=== PATIENT | male | born 1985 | race Caucasian/White ===

== ENCOUNTER → 2021-03-23 15:32 | Outpatient (CLI) | payer OTHER, SELFPAY ==
--- NOTE | 2021-03-23 15:41 | XR_ITS ---
PROCEDURE: XR SHOULDER LT MIN 2V CLINICAL INDICATION: left shoulder pain COMPARISON: No exams were available for comparison FINDINGS: No fracture or dislocation. No lytic or blastic change. There is normal mineralization. The joint spaces are well-preserved. No significant degenerative/arthritic changes. No erosive changes evident. Other findings:None. IMPRESSION: Negative left shoulder Dictated by: Milan Bah MD 03/23/2021 17:02 Milan Bah MD in [facility] 03/23/2021 17:02
--- NOTE | 2021-03-23 15:41 | XR_ITS ---
PROCEDURE: XR KNEE LT 4V CLINICAL INDICATION: left knee pain COMPARISON: No exams were available for comparison FINDINGS: Status post ACL repair. There are moderate to severe osteoarthritic changes involving all 3 compartments. No acute fracture or dislocation. A cortical screw is present in the proximal tibia anteriorly. IMPRESSION: No acute fracture. Prior ACL repair with moderate to severe osteoarthritic change Dictated by: Milan Bah MD 03/23/2021 17:02 Milan Bah MD in [facility] 03/23/2021 17:02
--- NOTE | 2021-03-23 15:41 | XR_ITS ---
PROCEDURE: XR FOOT LT MIN 3V CLINICAL INDICATION: left foot pain COMPARISON: No exams were available for comparison FINDINGS: No fracture or dislocation. No lytic or blastic change. There is normal mineralization. The joint spaces are well-preserved. No significant degenerative/arthritic changes. No erosive changes evident. Other findings:None. IMPRESSION: No acute findings. Dictated by: Milan Bah MD 03/23/2021 17:00 Milan Bah MD in [facility] 03/23/2021 17:00
[2021-03-23 17:14] LABS: Basophils % 0.5 % (0.1-2.0); Eosinophils # 0.3 K/mm3 (0.0-0.4); Eosinophils % 3.2 % (0.1-12.0); Hematocrit 45.2 % (42.0-52.0); Hemoglobin 15.4 g/dL (14.1-18.0); Lymphocytes # 2.3 K/mm3 (0.7-4.5); Lymphocytes % 25.4 % (10-50); Mean Corpuscular Hemoglobin 32.3 pg (27.0-31.2); Mean Corpuscular Volume 94.8 fl (80-94); Mean Platelet Volume 9.7 fl (7.4-10.4); Monocytes # 0.6 K/mm3 (0.1-1.0); Monocytes % 6.7 % (1.7-9.3); Neutrophils # 5.7 K/mm3 (1.8-7.8); Neutrophils % 64.2 % (37.0-80.0); Platelet Count 278 K/mm3 (142-424); Red Blood Count 4.76 M/mm3 (4.60-6.20); Red Cell Distribution Width 13.6 % (11.5-17.5); White Blood Count 8.9 K/mm3 (4.8-10.8)
[2021-03-23 17:26] LABS: Alanine Aminotransferase 78 U/L (12-78); Albumin Level 4.2 g/dl (3.5-5.0); Albumin/Globulin Ratio 1.6 (1.1-1.8); Alkaline Phosphatase 81 U/L (38-126); Anion Gap 14.4 mEq/L (5-15); Aspartate Amino Transferase 65 U/L (17-59); Bilirubin,Total 0.3 mg/dl (0.2-1.3); Blood Urea Nitrogen 12 mg/dl (9-20); Calcium 9.1 mg/dl (8.4-10.2); Carbon Dioxide 28 mmol/L (22.0-30.0); Chloride 101 mmol/L (98-107); Cholesterol 168 mg/dl (140-200); Estimated Glomerular Filt Rate 111 ml/min (>60); GFR (African American) 134 ML/MIN (>60); Globulin 2.7 g/dL (1.3-3.2); Glucose 84 mg/dl (74-100); HDL Cholesterol 42 mg/dl (40-60); Potassium 4.4 mmoL/L (3.5-5.1); Sodium 139 mmol/L (136-145); Total Protein,Serum 6.9 g/dl (6.3-8.2); Triglycerides 142 mg/dl (30-150); VLDL Cholesterol 28 mg/dL (0-40)
[2021-03-23 17:37] LABS: Direct LDL Cholesterol 96.71 mg/dL (100-129)
[2021-03-23 17:43] LABS: 25-OH Vitamin D, Total 37.7 ng/mL (30-100); Hemoglobin A1C 5.5 % (4.0-6.0)
[2021-03-23 17:56] LABS: Thyroid Stimulating Hormone 1.47 uIU/mL (0.465-4.68)
== END ==
PROVIDERS: Visit Provider Physician Assistant
DX: I10 Essential (primary) hypertension (principal); M25.512 Pain in left shoulder; M25.562 Pain in left knee; M79.672 Pain in left foot; E66.9 Obesity, unspecified; Z68.41 Body mass index [BMI] 40.0-44.9, adult
CPT/HCPCS: 36415; 73030; 73564; 73630; 80053; 80061; 82306; 83036; 84443; 85025

== ENCOUNTER 2021-05-17 07:00 | Outpatient (RCR) | payer MEDICAID, SELFPAY ==
--- NOTE | 2021-04-20 16:33 | HMH.PTOPEV ---
PT Outpatient Evaluation Rehab PT Outpatient Evaluation Start: 04/20/21 15:04 Freq: Status: Active Protocol: Document 04/20/21 15:04 EDGARD (Rec: 04/20/21 16:33 PDESEROUX [id number]) Electronically Signed By Neal Nair, PT 04/20/21 15:04 Outpatient Therapy Subjective History Subjective History Pt. is a 35 year old male who presents to [facility]patient [facility] w/ c/o subacute on chronic and constant LLE knee/ankle/ft. P! , giving out, ROM restrictions, and an antalgic gait of insidious onset 2-3 months ago. Pt. reports traumatic initial symptom onset for the LLE knee in 2004 , but c/o current symptoms worsening 2-3 months ago after insidious initial symptom onset for LLE Plantar Fasciitis. Pt. describes symptoms in the foot as like I'm stepping on glass. Pt. describes symptoms in the knee as a constant ache w/ intermittent stabbing w/ certain movements. Pt. reports symptoms worsen w/ activities that include prolonged standing and ambulating, and placing his heel on the ground . Pt. reports having some symptom relief w/ prescribed anti-inflammatories, heat, and ice. Recent diagnostic imaging positive for severe OA per pt. report. Pt. also reports having some symptom relief after his cortisone injections. 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 Pt. RTMD 07/23/[address] Alcantar's office on 05/03/21. Current medications include Ibuprofen and Tylenol. PMH includes LLE knee ACL and B/L meniscal reconstruction, lower
== END 2021-06-28 08:12 | disposition home or self-care (01) ==
LOC: PT.CARL 07:00
PROVIDERS: Visit Provider Orthopaedic Surgery
DX: M17.12 Unilateral primary osteoarthritis, left knee (principal); M72.2 Plantar fascial fibromatosis
CPT/HCPCS: 97010; 97014; 97110; 97163; G0283

== ENCOUNTER → 2021-06-12 12:17 | Outpatient (CLI) | payer MEDICAID, SELFPAY | PROVIDERS: PCP Physician Assistant; Visit Provider Physician Assistant | DX: G47.33 Obstructive sleep apnea (adult) (pediatric) (principal); R06.83 Snoring | CPT/HCPCS: G0399 ==

== ENCOUNTER → 2021-07-08 10:38 | Outpatient (CLI) | payer MEDICAID, SELFPAY | PROVIDERS: PCP Physician Assistant; Visit Provider Physician Assistant | DX: I49.9 Cardiac arrhythmia, unspecified (principal); I10 Essential (primary) hypertension; Z86.79 Personal history of other diseases of the circulatory system | CPT/HCPCS: 93270 ==

== ENCOUNTER → 2021-07-27 08:33 | Outpatient (CLI) | payer MEDICAID, SELFPAY ==
--- NOTE | 2021-07-27 | CA_ITS ---
APPROVED REPORT Exam: Exercise Treadmill Technologist: Melanie Rocha Ht: 5 ft 10 in Wt: 297 lbs BSA: 2.47 m2 HR: 67 bpm BP: 154/104 mmHg Indications: Shortness of Breath Medical History Medications: Lisinopril/HCTZ,,,,, Diclofenac,,,,, Stress Test Details Test: Dale HR Resting HR: 77 bpm Max Heart Rate (APMHR): 186.015927 bpm Max HR Achieved: 162 bpm Target HR (85% APMHR): 158.185732 bpm % of APMHR: 87.10 Recovery HR: 98 bpm BP Resting BP: 140.0/104.0 mmHg Max BP: 208.0/100.0 mmHg Recovery BP: 153.0/86.0 mmHg ECG Resting ECG: Sinus arrhythmias, incomplete right bundle branch block Clinical Exercise duration: 09:45 min Highest Stage Achieved: Exercise capacity: 10.1 METs Stress ECG Conclusion Patient exercised 9:00 on Dale Protocol. Test stopped due to shortness of air, dizziness. Symptoms: Shortness of air, fatigue, dizziness. Arrhythmias/Ectopy: Rare PAC. One atrial couplet. ST-T Changes: Normal ST response although no tracing obtained of peak exercise due to limb lead falling off. Conclusion: Probably normal GXT. Rest and stress echo images reported separately. Test Summary Stage 3 02:00 14.0 3.4 157 . . . . REST . . . . . . . Standing REST 05:18 0.0 0.0 77 . 140/104 . . Stage 1 01:00 10.0 1.7 114 . . . . Stage 1 02:00 10.0 1.7 120 . . . . Stage 1 03:00 10.0 1.7 122 . 186/102 . . Stage 2 01:00 12.0 2.5 128 . . . . Stage 2 02:00 12.0 2.5 136 . . . . Stage 2 03:00 12.0 2.5 140 . 208/100 . . Stage 3 01:00 14.0 3.4 154 . . . . Stage 3 02:00 14.0 3.4 157 . . . . Stage 3 03:00 14.0 3.4 0 . . . . Stage 4 00:45 16.0 0.0 145 . . . Stop exercise at 09:45 RECOVERY 01:00 0.0 0.0 110 . . . . RECOVERY 02:00 0.0 0.0 100 . . . . RECOVERY 03:00 0.0 0.0 104 . . . . RECOVERY 04:00 0.0 0.0 100 . 163/ 83 . . RECOVERY 05:00 0.0 0.0 92 . 163/ 83 . . RECOVERY 05:21 0.0 0.0 97 . 153/ 86 . . Electronically signed by : Ra Gibbs MD 07/27/2021 19:15:23
--- NOTE | 2021-07-27 08:34 | CA_ITS ---
APPROVED REPORT EXAM: Comprehensive 2D, Doppler, and color-flow Echocardiogram Cot Assembler: Luana Cardozo RVT Ht: 5 ft 10 in Wt: 297lbs BSA: 2.47 BP: 148/92 mmHg Indications: SOA,ARRHYTHMIA ON SLEEP STUDY,HTN,OBESITY,FATIGUE Stress Test Details HR Max Heart Rate (APMHR): 186.808414 bpm Target HR (85% APMHR): 158.949769 bpm BP ECG Conclusion 1. Patient exercised on Dale protocol achieved 10.1 METs of workload on treadmill, the blood pressure response to exercise was hypertensive, there was no exercise-induced chest discomfort, EKG was negative for ischemia. 2. Normal left ventricular systolic function at rest, with exercise there is increase in contractility of all the segments of the myocardium with hyperdynamic left ventricular systolic response, no obvious regional wall motion abnormality to suggest underlying ischemic heart disease. 3. Normal exercise stress echo except for hypertensive blood pressure response with exercise. Electronically signed by : Ra Gibbs MD 07/27/2021 19:32:49
--- NOTE | 2021-07-27 08:34 | CA_ITS ---
APPROVED REPORT EXAM: Comprehensive 2D, Doppler, and color-flow Echocardiogram Hebrew Professor: Luana Cardozo RVT Ht: 5 ft 10 in Wt: 297lbs BSA: 2.47 BP: 148/92 mmHg Indications: SOA,ARRYTHMIA ON SLEEP STUDY,HTN,OBESITY,FATIGUE 2D Dimensions LVOT 2.31 cm (M/F) 1.5-2.5 LA Volume 32.70 mL LA Volume Index 13.23 mL/m2 (M/F) 16-34 M-Mode Dimensions RVDd 2.91 cm (0.9-2.6) LA Diam 4.07 cm (1.9-4.0) LVDd 5.63 cm (3.5-5.7) Ao Diam 3.72 cm (2.0-3.7) LVDs 3.58 cm (3.5-5.7) IVSd 0.63 cm (0.6-1.1) PWd 0.89 cm (0.6-1.1) EF (Teich) 65.50% FS 36.40% EDV (Teich) 155.60 mL TAPSE 1.93 (<1.7) ESV (Teich) 53.70 mL LV Diastology E Decel Time 150.00 (160-240 msec) E/A Ratio 1.6 MED E' 13.60 (< 7 cm/sec) E'/MED E' Ratio 6.76 (>14) LAT E' 8.80 (<10 cm/sec) E/LAT E' Ratio 10.44 (>14) Mitral Valve MV E Max Monico. 92.00 (40-130 cm/s) MV A Velocity 58.00 (40-130 cm/s) E/A Ratio 1.58 MV Decel. Time 150.00 (160-240 ms) MV PHT 44.00 ms Pulmonary Valve PV Peak Velocity 70.00 (50-150 cm/s) Tricuspid Valve TR P. Velocity 244.00 cm/s RAP Estimate 10.00 mmHg RVSP 33.80 mmHg Left Ventricle Left atrium is normal size, left ventricle is normal size, there is no concentric left ventricular hypertrophy, visually estimated ejection fraction 50% with no regional wall motion abnormality, diastolic parameters are within normal range. Right Ventricle Right atrium and right ventricle are mildly enlarged with normal contractility. Aortic Valve Aortic valve is grossly normal, there is no aortic stenosis or aortic insufficiency. Mitral Valve Mitral valve is grossly normal, there is trace mitral regurgitation. Tricuspid Valve Tricuspid valve grossly normal, there is trace tricuspid regurgitation, tricuspid regurgitation jet course is inadequate for calculation of the right ventricular systolic pressure. Pulmonic Valve Pulmonic valve is poorly visualized. Great Vessels Aortic root is normal size. Inferior vena cava normal size with normal inspiratory collapse. Pericardium No significant pericardial effusion noted. Conclusion 1. Normal left ventricular size, preserved left ventricular systolic function, visually estimated ejection fraction 55% with no regional wall motion abnormality, diastolic parameters are within normal range. 2. Mildly enlarged right ventricle with normal contractility. 3. Trace mitral and tricuspid regurgitation. 4. No significant pericardial effusion noted. 5. Inferior vena cava normal size with normal inspiratory collapse. Electronically signed by : Ra Gibbs MD 07/27/2021 19:31:37
== END ==
PROVIDERS: PCP Physician Assistant; Visit Provider Physician Assistant
DX: R06.00 Dyspnea, unspecified (principal); I49.9 Cardiac arrhythmia, unspecified; I10 Essential (primary) hypertension; Z86.79 Personal history of other diseases of the circulatory system
CPT/HCPCS: 93017; 93306; 93350

== ENCOUNTER 2021-09-01 09:59 | Outpatient (RCR) | payer MEDICAID, SELFPAY | END 2021-09-01 10:54 | disposition home or self-care (01) | LOC: PT 09:59 | PROVIDERS: Visit Provider Orthopaedic Surgery | DX: M17.12 Unilateral primary osteoarthritis, left knee (principal) | CPT/HCPCS: 97760 ==

== ENCOUNTER → 2022-04-11 07:28 | Outpatient (CLI) | payer MEDICAID, SELFPAY ==
[2022-04-11 20:11] LABS: Basophils # 0.1 K/mm3 (0-0.2); Basophils % 0.8 % (0.1-2.0); Eosinophils # 0.4 K/mm3 (0.0-0.4); Eosinophils % 4.3 % (0.1-12.0); Lymphocytes # 1.6 K/mm3 (0.7-4.5); Lymphocytes % 19.2 % (10-50); Mean Corpuscular Volume 96.8 fl (80-94); Monocytes # 0.6 K/mm3 (0.1-1.0); Monocytes % 6.7 % (1.7-9.3); Neutrophils # 5.7 K/mm3 (1.8-7.8); Neutrophils % 69.1 % (37.0-80.0); Platelet Count 270 K/mm3 (142-424); Red Blood Count 5.16 M/mm3 (4.60-6.20); Red Cell Distribution Width 13.4 % (11.5-17.5); White Blood Count 8.2 K/mm3 (4.8-10.8)
[2022-04-11 20:51] LABS: Alanine Aminotransferase 52 U/L (12-78); Albumin Level 4.3 g/dl (3.5-5.0); Albumin/Globulin Ratio 1.6 (1.1-1.8); Alkaline Phosphatase 110 U/L (38-126); Anion Gap 16.5 mEq/L (5-15); Aspartate Amino Transferase 43 U/L (17-59); Blood Urea Nitrogen 16 mg/dl (9-20); Calcium 8.9 mg/dl (8.4-10.2); Carbon Dioxide 27 mmol/L (22.0-30.0); Chloride 101 mmol/L (98-107); Chol/HDL Ratio 4.1 (1-3.5); Cholesterol 165 mg/dl (140-200); Estimated Glomerular Filt Rate 110 ml/min (>60); GFR (African American) 133 ML/MIN (>60); Globulin 2.7 g/dL (1.3-3.2); Glucose 102 mg/dl (74-100); HDL Cholesterol 40 mg/dl (40-60); Potassium 4.5 mmoL/L (3.5-5.1); Sodium 140 mmol/L (136-145); Triglycerides 132 mg/dl (30-150); VLDL Cholesterol 26 mg/dL (0-40)
[2022-04-11 21:02] LABS: Bilirubin,Total < 0.1 mg/dl (0.2-1.3)
[2022-04-11 21:08] LABS: Direct LDL Cholesterol 99.92 mg/dL (100-129)
[2022-04-11 21:19] LABS: 25-OH Vitamin D, Total 32.3 ng/mL (30-100)
[2022-04-11 21:33] LABS: Thyroid Stimulating Hormone 1.36 uIU/mL (0.465-4.68)
== END ==
PROVIDERS: PCP Physician Assistant; Visit Provider Physician Assistant
DX: I10 Essential (primary) hypertension (principal); R35.0 Frequency of micturition; E66.9 Obesity, unspecified; Z68.41 Body mass index [BMI] 40.0-44.9, adult
CPT/HCPCS: 80053; 80061; 82306; 84443; 85025; 87086

== ENCOUNTER → 2022-04-25 16:26 | Outpatient (CLI) | payer MEDICAID, SELFPAY ==
[2022-04-25 16:44] LABS: Chloride 96 mmol/L (98-107); Potassium 4.6 mmoL/L (3.5-5.1); Sodium 138 mmol/L (136-145)
[2022-04-25 17:37] LABS: Anion Gap 18.6 mEq/L (5-15); Blood Urea Nitrogen 22 mg/dl (9-20); Carbon Dioxide 28 mmol/L (22.0-30.0); Estimated Glomerular Filt Rate 96 ml/min (>60); GFR (African American) 116 ML/MIN (>60)
[2022-04-25 17:38] LABS: Calcium 9.3 mg/dl (8.4-10.2); Glucose 67 mg/dl (74-100)
== END ==
PROVIDERS: PCP Physician Assistant; Visit Provider Physician Assistant
DX: I10 Essential (primary) hypertension (principal)
CPT/HCPCS: 80048

== ENCOUNTER 2022-10-31 12:27 | Emergency (ER) | payer MEDICAID, SELFPAY ==
[2022-10-31 12:27] VITALS: BP 139/87; PULSE 83; RESP 18; TEMP 36.9; O2SAT 99; BMI 43.0
--- NOTE | 2022-10-31 12:37 | HMH.EDGENADL ---
Discharge Plan Disposition Patient Disposition: Home, Self-Care Prescriptions Prescriptions: New cyclobenzaprine 5 mg tablet 5 mg PO TID PRN (Reason: muscle spasm) 5 Days Qty: 15 0RF No Action meloxicam 15 mg tablet See Rx Instructions .ROUTE .COMPLEX Rx Instructions: TAKE ONE TABLET BY MOUTH EVERY DAY lisinopril-hydrochlorothiazide 20-25 mg tablet See Rx Instructions .ROUTE .COMPLEX Rx Instructions: TAKE ONE TABLET BY MOUTH EVERY DAY Referrals Follow up/Referrals: Fadia Ott PA [Primary Care Provider] - See instructions Activity Restrictions/Add. Instructions Additional Instructions/Restrictions: Please take your Flexeril with 1000 mg of acetaminophen 3 times a day. Please have a discussion with your primary care doctor about your chronic NSAID use including meloxicam and ibuprofen. Needs okay to take 800 mg of ibuprofen without meloxicam 3 times a day over the next week. However there is significant side effects and harm from chronic NSAID use including cardiovascular risk factors gastrointestinal risk factors chronic kidney damage, etc. This is a conversation need to have with your primary care doctor and after this acute episode has improved I would suggest that you discontinue those. Please return to the emergency department with any urinary or bowel incontinence numbness between your legs lower extremity paralysis high fevers or other concerns. Clinical Impressions Clinical Impression: Lumbar strain, Contusion of back Discharge ED Provider: Pernell Baltazar General Adult HPI General Chief complaint: Fall Stated complaint: AO@home 10/29 Back pain Time Seen by Provider: 10/31/22 12:37 Mode of Arrival: Ambulatory Source of Information: Patient Limitations: No Limitations Description of Symptoms (Recalled from ER Triage Doc. by RN): 36 M presents from home after falling off the back of his truck on Monday. He slipped and lost balance. Denies loss of bowel or bladder. CMS intact overall. Denies LOC, but did hit his head. Since Monday he has just dealt with it, but is experiencing increased pain and discomfort in his L-spine and T-Spine. History of Present Illness HPI narrative: 36-year-old male presenting with lower back pain following fall off of a truck. This happened several days ago when he was getting down backwards from the bed of his truck and fell backwards onto his left buttock area with an axial load and subsequent lumbar spine pain. States has had some pain radiating down his left lower extremity with some pain associated with movement but no significant weakness or paralysis no saddle anesthesia no urinary or bowel incontinence or retention no fevers or chills history of injection drug use or diabetes. He has been taking ibuprofen as well as meloxicam at home. Meds meloxicam is a chronic medication he is on daily for chronic knee pain. He took ibuprofen on top of this. He has not had any GI bleeding any nausea vomiting changes in mental status any chest pain or decrease in urine output. Related Data Home Medications Medication Instructions Recorded Confirmed lisinopril 20 See Rx Instructions .Route 10/31/22 10/31/22 mg-hydrochlorothiazide 25 mg tablet .COMPLEX High blood pressure meloxicam 15 mg tablet See Rx Instructions .Route 10/31/22 10/31/22 .COMPLEX Pain Previous Rx's Medication Instructions Recorded cyclobenzaprine 5 mg tablet 5 mg PO TID PRN muscle spasm 5 10/31/22 days #15 tabs Allergies Allergy/AdvReac Type Severity Reaction Status Date / Time Penicillins Allergy Mild Verified 08/11/22 13:51 [facility] Disclaimer: The information contained in this section may have been updated after the patient was seen, as this information can be updated by other users. Medical History (Updated 10/31/22 @ 14:07 by Pernell Baltazar MD) Cardiac dysrhythmia Deviated septum Dyspnea History of cardiac arrhythmia Hypertension Left knee
--- NOTE | 2022-10-31 12:49 | CT_ITS ---
FINAL REPORT TECHNIQUE: Axial images were performed through the lumbar spine by computed tomography. Sagittal reconstruction images were also performed. This study was performed with techniques to keep radiation doses as low as reasonably achievable, (ALARA). Individualized dose reduction techniques using automated exposure control or adjustment of mA and/or kV according to the patient''s size were employed. CLINICAL HISTORY: fall, midline L spine pain FINDINGS: Sagittal reconstruction images demonstrate no subluxation. No fracture is identified. There are mild degenerative changes. There is mild spurring of the SI joints. There are areas of neural foraminal narrowing, greatest at L5-S1. IMPRESSION: No acute fracture. Reviewed, Interpreted and Dictated by Chano Gibbs III, MD Transcribed by Edward Waller Authenticated and [facility]
[2022-10-31 14:11] VITALS: BP 139/85; PULSE 87; RESP 18; TEMP 36.8; O2SAT 98
== END 2022-10-31 14:12 | disposition home or self-care (01) ==
PROVIDERS: Emergency Provider Student in an Organized Health Care Education/Training Program; PCP Physician Assistant
DX: S39.012A Strain of muscle, fascia and tendon of lower back, initial encounter (principal); S30.0XXA Contusion of lower back and pelvis, initial encounter; M79.605 Pain in left leg; W17.89XA Other fall from one level to another, initial encounter
CPT/HCPCS: 72131; 99284

== ENCOUNTER → 2022-11-30 13:30 | Outpatient (CLI) | payer MEDICAID, SELFPAY | PROVIDERS: PCP Physician Assistant; Visit Provider Physician Assistant | DX: M54.50 Low back pain, unspecified (principal) | CPT/HCPCS: 87086 ==

== ENCOUNTER 2022-12-21 08:00 | Outpatient (RCR) | payer MEDICAID, SELFPAY ==
--- NOTE | 2022-12-06 11:00 | HMH.PTOPEV ---
PT Outpatient Evaluation Rehab PT Outpatient Evaluation Start: 12/06/22 09:59 Freq: Status: Active Protocol: Document 12/06/22 09:59 PDESERJURGEN (Rec: 12/06/22 10:59 PDESEROUX [id number]) E-signed By Neal Nair, PT Outpatient Therapy Subjective History Subjective History Pt. is a 36 year old male whom presents to [facility] in [place] for the initial evaluation this date( 12/06/22) w/ c/o chronic and constant lumbar(L>R) P! and stiffness w/ c/o intermittment BLE numbness. Pt. vocalizes having numbness radiate into BLEs w/ lying supine. Pt. also vocalizes BLE feels like they fall off w/ standing and ambulation. Pt. reports original onset of symptoms was in 2022 after falling off the back of a truck. Pt. reports symptoms have progressively worsened since then. Pt. reports having some symptom relief for a day and a half w/ recent injection for current complaint. Recent diagnostic imaging(radiograph) negative per pt. report. Pt. denies bowel/bladder dysfunction nor saddle paresthesia at this time. Current medication list includes Gabapentin and Lisinopril. PMH includes S/P LLE knee ACL reconstruction x 4 surgeries, Hypertension, and S/P reconstruction of LUE shldr. rhomboid and lower trap . muscles. Pt. denies history of pacemaker, denies history of latex allergy, denies history of cancer(self), denies history of diabetes, reports medicational allergy to Penicillin. Chief Complaint Pain,Spasms,Stiff,Paresthesia, Weakness Symptom Type Ache,Sharp,Dull,Stabbing, Burning,Nu
--- NOTE | 2022-12-06 11:02 | HMH.PTOPEV ---
PT Outpatient Evaluation Rehab PT Outpatient Evaluation Start: 12/06/22 09:59 Freq: Status: Active Protocol: Document 12/06/22 09:59 PDESERJURGEN (Rec: 12/06/22 10:59 PDESEROUX [id number]) E-signed By Neal Nair, PT Outpatient Therapy Subjective History Subjective History Pt. is a 36 year old male whom presents to [facility] Out[facility] in [place] for the initial evaluation this date( 12/06/22) w/ c/o chronic and constant lumbar(L>R) P! and stiffness w/ c/o intermittment BLE numbness. Pt. vocalizes having numbness radiate into BLEs w/ lying supine. Pt. also vocalizes BLE feels like they fall off w/ standing and ambulation. Pt. reports original onset of symptoms was in 2022 after falling off the back of a truck. Pt. reports symptoms have progressively worsened since then. Pt. reports having some symptom relief for a day and a half w/ recent injection for current complaint. Recent diagnostic imaging(radiograph) negative per pt. report. Pt. denies bowel/bladder dysfunction nor saddle paresthesia at this time. Current medication list includes Gabapentin and Lisinopril. PMH includes S/P LLE knee ACL reconstruction x 4 surgeries, Hypertension, and S/P reconstruction of LUE shldr. rhomboid and lower trap . muscles. Pt. denies history of pacemaker, denies history of latex allergy, denies history of cancer(self), denies history of diabetes, reports medicational allergy to Penicillin. Chief Complaint Pain,Spasms,Stiff,Paresthesia, Weakness Symptom Type Ache,Sharp,Dull,Stabbing, Burning,Nu
== END 2023-01-25 17:05 | disposition home or self-care (01) ==
LOC: PT 08:00
PROVIDERS: PCP Physician Assistant; Visit Provider Physician Assistant
DX: M54.50 Low back pain, unspecified (principal)
CPT/HCPCS: 97010; 97014; 97110; 97140; 97163; G0283

== ENCOUNTER 2023-03-29 12:12 | Emergency (ER) | payer OTHER, MEDICAID, SELFPAY ==
[2023-03-29 12:12] VITALS: BP 116/57; PULSE 65; RESP 18; TEMP 37.1; O2SAT 98; BMI 41.5
--- NOTE | 2023-03-29 12:14 | PC.NURSE ---
calling [facility] for transfer for hand surgeon due to pt cut of right thumb above knuckle
--- NOTE | 2023-03-29 12:15 | PC.NURSE ---
DR. Cespedes at [facility]
--- NOTE | 2023-03-29 12:18 | HMH.EDGENADL ---
Discharge Plan Disposition Patient Disposition: Xfer Short-Term Hosp Condition: Good Prescriptions Prescriptions: No Action clotrimazole [Lotrimin AF (clotrimazole)] 1 % cream 1 applic topical BID Qty: 15 2RF gabapentin [Neurontin] 100 mg capsule 100 mg PO BID Qty: 60 2RF phentermine [Adipex-P] 37.5 mg tablet 37.5 mg PO DAILY Qty: 30 0RF Rx Instructions: must administer 30 minutes before or 1-2 hours after breakfast lisinopril-hydrochlorothiazide 20-25 mg tablet See Rx Instructions .ROUTE .COMPLEX Qty: 30 1RF Dose Instruction: TAKE ONE TABLET BY MOUTH EVERY DAY Rx Instructions: TAKE ONE TABLET BY MOUTH EVERY DAY meloxicam 15 mg tablet See Rx Instructions .ROUTE .COMPLEX Qty: 30 1RF Dose Instruction: TAKE ONE TABLET BY MOUTH EVERY DAY Rx Instructions: TAKE ONE TABLET BY MOUTH EVERY DAY Referrals Follow up/Referrals: Provider,Referral, MD [Primary Care Provider] - See instructions Clinical Impressions Clinical Impression: 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 Qualifiers: Encounter type: initial encounter Qualified Code(s): S68.511A - Complete traumatic transphalangeal amputation of right thumb, initial encounter Instructions Patient Instructions: DI for Laceration Repair Discharge ED Provider: Stacey Cespedes General Adult HPI General Chief complaint: Wound/Laceration Stated complaint: Laceration Time Seen by Provider: 03/29/23 12:13 History of Present Illness HPI narrative: This patient is a 37-year-old male with a history of hypertension and obesity presenting to the emergency department for evaluation with concern for an amputation of his right from through his phalanx. This happened at work just prior to arrival. 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 He is right-hand dominant. He denies any other injuries. He is unsure when his last tetanus shot was. He reports a significant penicillin allergy, and states that he is intolerant of all antibiotics related to penicillins. He was well prior to this and does not take any blood thinners. Related Data Previous Rx's Medication Instructions Recorded clotrimazole 1 % topical cream 1 applic topical BID #15 grams 11/30/22 (Lotrimin AF (clotrimazole)) gabapentin 100 mg capsule 100 mg PO BID #60 caps 11/30/22 (Neurontin) lisinopril 20 See Rx Instructions .Route 12/27/22 mg-hydrochlorothiazide 25 mg tablet .COMPLEX #30 tabs meloxicam 15 mg tablet See Rx Instructions .Route 12/28/22 .COMPLEX #30 tabs phentermine 37.5 mg tablet 37.5 mg PO DAILY #30 tabs 12/29/22 (Adipex-P) Allergies Allergy/AdvReac Type Severity Reaction Status Date / Time Penicillins Allergy Mild Verified 12/29/22 10:28 [facility] Disclaimer: The information contained in this section may have been updated after the patient was seen, as this information can be updated by other users. Medical History Cardiac dysrhythmia Deviated septum Dyspnea History of cardiac arrhythmia Hypertension Left knee pain Obesity Sleep apnea Tympanosclerosis Family History Other Asthma Cancer Diabetes Hypertension Stroke Social History Smoking Status: Never smoker alcohol intake: current substance use type: denies use current occupational status: employed Travel in the last 8 weeks: None ROS Obtained: Yes All systems reviewed & no additional complaints except as documented Physical Exam General General appearance: alert and in no apparent distress Head Head exam: atraumatic and normocephalic Eye Eye exam: Present normal appearance, PERRL and EOMI ENT ENT exam: Present normal exam, normal oropharynx, mucous membranes moist and normal external ear exam Neck Neck exam:
--- NOTE | 2023-03-29 12:21 | PC.NURSE ---
SITE CLEANED, WRAPPED WITH WET GAUZE. PT TOLERATED WELL
[2023-03-29 12:30] VITALS: BP 133/77; PULSE 77; O2SAT 99
--- NOTE | 2023-03-29 12:36 | PC.NURSE ---
Addendum entered by JEFFERSON Tuttle 03/29/23 12:52: good emerita's doctor Original Note: speaking with
--- NOTE | 2023-03-29 12:48 | PC.NURSE ---
[facility] here for patient transport to [facility]
--- NOTE | 2023-03-29 12:56 | PC.NURSE ---
Report given to Shona at [facility].
[2023-03-29 13:02] VITALS: BP 115/78; PULSE 87; RESP 18; TEMP 37.1; O2SAT 99
== END 2023-03-29 13:03 | disposition short-term general hospital (02) ==
PROVIDERS: Emergency Provider Emergency Medicine; PCP Physician Assistant
DX: S68.511A Complete traumatic transphalangeal amputation of right thumb, initial encounter (principal); I10 Essential (primary) hypertension; E66.9 Obesity, unspecified; W31.9XXA Contact with unspecified machinery, initial encounter; Y99.0 Civilian activity done for income or pay; G47.30 Sleep apnea, unspecified; Z23 Encounter for immunization
CPT/HCPCS: 90715; 96365; 96372; 96375; 99285; J2405

== ENCOUNTER 2023-06-05 08:00 | Outpatient (RCR) | payer OTHER, SELFPAY | END 2023-06-19 15:12 | disposition home or self-care (01) | LOC: PT 08:00 | PROVIDERS: PCP Physician Assistant; Visit Provider Physician Assistant | DX: S68.521A Partial traumatic transphalangeal amputation of right thumb, initial encounter (principal) | CPT/HCPCS: 97110; 97112; 97163; 97164; 97530 ==

== ENCOUNTER 2023-09-06 10:25 | Outpatient (RCR) | payer OTHER, SELFPAY | END 2023-09-06 11:25 | disposition home or self-care (01) | LOC: OT 10:25 | PROVIDERS: Visit Provider Physician Assistant | DX: M79.641 Pain in right hand (principal); S68.52 Partial traumatic transphalangeal amputation of thumb | CPT/HCPCS: 97166 ==

== ENCOUNTER 2023-10-12 18:57 | Outpatient (CLI) | payer MEDICAID, SELFPAY ==
[2023-10-12 18:57] LABS: Basophils # 0.1 K/mm3 (0-0.2); Basophils % 0.6 % (0.1-2.0); Eosinophils # 0.2 K/mm3 (0.0-0.4); Eosinophils % 1.7 % (0.1-12.0); Hemoglobin 15.7 g/dL (14.1-18.0); Lymphocytes # 1.7 K/mm3 (0.7-4.5); Lymphocytes % 20.2 % (10-50); Mean Corpuscular HGB Conc 32.7 g/dL (31.8-35.4); Mean Corpuscular Hemoglobin 32.4 pg (27.0-31.2); Mean Corpuscular Volume 99.1 fl (80-94); Mean Platelet Volume 10.1 fl (7.4-10.4); Monocytes # 0.5 K/mm3 (0.1-1.0); Monocytes % 6.1 % (1.7-9.3); Neutrophils # 6.1 K/mm3 (1.8-7.8); Neutrophils % 71.3 % (37.0-80.0); Platelet Count 237 K/mm3 (142-424); Red Blood Count 4.85 M/mm3 (4.60-6.20); Red Cell Distribution Width 13.3 % (11.5-17.5); White Blood Count 8.6 K/mm3 (4.8-10.8)
[2023-10-12 19:37] LABS: Alanine Aminotransferase 63 U/L (12-78); Albumin Level 4.7 g/dl (3.5-5.0); Albumin/Globulin Ratio 1.9 (1.1-1.8); Alkaline Phosphatase 72 U/L (38-126); Anion Gap 15.9 mEq/L (5-15); Aspartate Amino Transferase 49 U/L (17-59); Bilirubin,Total 0.5 mg/dl (0.2-1.3); Blood Urea Nitrogen 12 mg/dl (9-20); Calcium 9.3 mg/dl (8.4-10.2); Carbon Dioxide 27 mmol/L (22.0-30.0); Chloride 100 mmol/L (98-107); Chol/HDL Ratio 4.7 (1-3.5); Cholesterol 169 mg/dl (140-200); Estimated Glomerular Filt Rate 109 ml/min (>60); GFR (African American) 132 ML/MIN (>60); Globulin 2.5 g/dL (1.3-3.2); Glucose 81 mg/dl (74-100); HDL Cholesterol 36 mg/dl (40-60); Potassium 3.9 mmoL/L (3.5-5.1); Sodium 139 mmol/L (136-145); Total Protein,Serum 7.2 g/dl (6.3-8.2); Triglycerides 230 mg/dl (30-150); VLDL Cholesterol 46 mg/dL (0-40)
[2023-10-12 19:49] LABS: Direct LDL Cholesterol 87.98 mg/dL (100-129)
[2023-10-12 19:54] LABS: 25-OH Vitamin D, Total 35.9 ng/mL (30-100)
[2023-10-12 20:09] LABS: Thyroid Stimulating Hormone 0.97 uIU/mL (0.465-4.68)
== END 2023-10-12 23:59 ==
LOC: LAB.DROPOF 18:57
PROVIDERS: PCP Physician Assistant; Visit Provider Physician Assistant
DX: I10 Essential (primary) hypertension (principal); G62.9 Polyneuropathy, unspecified; Z79.899 Other long term (current) drug therapy
CPT/HCPCS: 80053; 80061; 82306; 84443; 85025

== ENCOUNTER 2023-12-14 18:33 | Emergency (ER) | payer OTHER, SELFPAY ==
[2023-12-14 18:36] VITALS: BP 166/110; PULSE 87; RESP 18; TEMP 37; O2SAT 100; BMI 41.1
--- NOTE | 2023-12-14 19:14 | ED_ITS ---
<Statement entered by Pernell Baltazar MD - 12/14/23 22:56> I was consulted by the CHANDNI, and we discussed the complexity of the problems being addressed. I approved the treatment and management plan for this patient's care in the emergency department, thus performing a substantive portion of the medical decision making. Pernell Baltazar MD, JAYLEN, FACEP Discharge Plan Disposition Patient Disposition: Home, Self-Care Condition: Good Prescriptions Prescriptions: New cephalexin 500 mg capsule 500 mg PO BID 10 Days Qty: 20 0RF No Action amitriptyline 25 mg tablet 25 mg PO HS Qty: 30 2RF gabapentin 300 mg capsule 300 mg PO Q8H Qty: 90 2RF clotrimazole [Lotrimin AF (clotrimazole)] 1 % cream 1 applic topical BID Qty: 15 2RF meloxicam 15 mg tablet See Rx Instructions .ROUTE .COMPLEX Qty: 30 1RF Dose Instruction: TAKE ONE TABLET BY MOUTH EVERY DAY Rx Instructions: TAKE ONE TABLET BY MOUTH EVERY DAY lisinopril-hydrochlorothiazide 20-25 mg tablet See Rx Instructions .ROUTE .COMPLEX Qty: 30 1RF Dose Instruction: TAKE ONE TABLET BY MOUTH EVERY DAY Rx Instructions: TAKE ONE TABLET BY MOUTH EVERY DAY Referrals Follow up/Referrals: Fadia Ott PA [Primary Care Provider] - See instructions Activity Restrictions/Add. Instructions Additional Instructions/Restrictions: Take all antibiotics till gone. I have referred you to a local orthopedist for follow-up. Return to ER as needed for any worsening signs or symptoms Clinical Impressions Clinical Impression: Abscess of right thumb Instructions Patient Instructions: DI for Skin Abscess Discharge ED Provider: Pernell Baltazar General Adult HPI General Chief complaint: Skin/Abscess/Foreign Body Stated complaint: WC right thumb injury Time Seen by Provider: 12/14/23 19:07 Mode of Arrival: Ambulatory Source of Information: Patient Limitations: No Limitations Description of Symptoms (Recalled from ER Triage Doc. by RN): PT C/O RIGHT THUMB PAIN AND SWELLING. PAIN STARTED 2-3 DAYS AGO, REDNESS AND SWELLING STARTED THIS AM. NO NEW INJURY. PT HAD CRUSH INJURY WITH AMPUTATION 03/29/23. LAST SX ON 10/17 History of Present Illness HPI narrative: Patient presents for evaluation of pain of his right thumb. Patient is 2 months postoperative from a traumatic avulsion of the distal portion of his thumb that includes the nail and nailbed. He has an area of pointing that is extremely te nder to palpation. Denies fever chills hemoptysis hematochezia melena loss of sensation loss of motor function. Related Data Previous Rx's Medication Instructions Recorded clotrimazole 1 % topical cream 1 applic topical BID #15 grams 11/30/22 (Lotrimin AF (clotrimazole)) meloxicam 15 mg tablet See Rx Instructions .Route 04/27/23 .COMPLEX #30 tabs amitriptyline 25 mg tablet 25 mg PO HS #30 tabs 10/12/23 gabapentin 300 mg capsule 300 mg PO Q8H #90 caps 10/12/23 lisinopril 20 See Rx Instructions .Route 10/30/23 mg-hydrochlorothiazide 25 mg tablet .COMPLEX #30 tabs cephalexin 500 mg capsule 500 mg PO BID 10 days #20 caps 12/14/23 Allergies Allergy/AdvReac Type Severity Reaction Status Date / Time vancomycin Allergy Intermediate Tachycardia Verified 10/12/23 15:11 Penicillins Allergy Mild Verified 10/12/23 15:11 [facility] Disclaimer: The information contained in this section may have been updated after the patient was seen, as this information can be updated by other users. Medical History Tympanosclerosis Deviated septum Sleep apnea Obesity Dyspnea History of cardiac arrhythmia Cardiac dysrhythmia Left knee pain Hypertension Family History Other Asthma Cancer Diabetes Hypertension Stroke Social History Smoking Status: Never smoker alcohol intake: current alcohol intake frequency: holidays/special occasions only substance use type: denies use current occupational status: employed Travel in the last 8 weeks: None ROS Obtained: Yes Systems reviewed as appropriate & no additional complaints except as documented Physical Exam General General appearance: alert and in no apparent distress Respiratory Respiratory exam: Present normal lung sounds bilaterally Cardiovascular Cardiovascular exam: Present regular rate and normal rhythm Neurological Exam Neurological exam: Present alert and oriented X3 Other Other exam information: Patient has an area of tenderness with pointing at the distal portion of his right thumb is very tender to palpation. Medical Decision Making Medical Records Medical records reviewed: Yes I reviewed the patient's medical records. Marcel Inquiry Pt receiving controlled substance: No Vital Signs: 12/14/23 18:36 Temperature 98.6 F Temperature Source Oral Pulse Rate [Radial] 87 Respiratory Rate 18 Blood Pressure [Left Arm] 166/110 H Blood Pressure Mean [Left Arm] 128 Blood Pressure Source [Left Arm] Automatic Cuff Blood Pressure Position [Left Arm] Sitting 02 Sat by Pulse Oximetry 100 Oxygen Delivery Method Room Air Orders (Tests/Meds): ED MEDICATIONS Discontinued Medications Generic Name Dose Route Start Last Admin Trade Name Freq PRN Reason Stop Dose Admin Lidocaine HCl 10 ml 12/14/23 19:23 12/14/23 19:57 Lidocaine 1% 10ml Mdv SQ 12/14/23 19:24 10 ml ONCE ONE Administration ORDERS Category Date Time Status Finger XR right minimum 2 views [XR finger RT min 2V] Exams 12/14/23 19:53 Taken Stat Medical Decision Narrative: In summary patient is a 38-year-old male who presents to the emergency department for evaluation of abscess to distal thumb on the right. Patient is hemodynamically stable upon arrival, afebrile. Physical exam is remarkable for fluid collection at the distal portion of his thumb that is currently pointing. Patient is status post revision of traumatic amputation of the distal portion that included the nailbed.. Differential diagnosis includes abscess versus osteomyelitis. Initial workup will be conducted with plain film x-ray. Initial interventions include digital block. Initial workup reviewed by me shows no acute fracture and no deep space abscess. I&D performed with scant pus. Will start the patient on oral antibiotics. Patient to follow-up with orthopedics as an outpatient Critical Care Critical Care Time Critical Care Time: No
--- NOTE | 2023-12-14 19:53 | XR_ITS ---
PROCEDURE INFORMATION: Exam: XR Right Finger(s) Exam date and time: 12/14/2023 7:55 PM Age: 38 years old Clinical indication: Pain; Finger(s); Right; Additional info: Abscess TECHNIQUE: Imaging protocol: Radiologic exam of the right fingers. Views: Minimum 2 views. COMPARISON: No relevant prior studies available. FINDINGS: Bones/joints: Previous amputation of the distal phalanx of the thumb. No acute findings. Soft tissues: Normal. IMPRESSION: Previous amputation of the distal phalanx of the thumb. No acute findings.
[2023-12-14] MEDS: LIDOCAINE 1% 10ML MDV 10 ML SQ (19:57)
[2023-12-14] MEDS: cephALEXin 500MG CAPSULE 500 MG PO (20:41)
[2023-12-14 20:49] VITALS: BP 155/94; PULSE 72; RESP 18; TEMP 36.6; O2SAT 98
== END 2023-12-14 20:50 | disposition home or self-care (01) ==
PROVIDERS: Emergency Provider Student in an Organized Health Care Education/Training Program; PCP Physician Assistant
DX: L02.511 Cutaneous abscess of right hand (principal)
CPT/HCPCS: 73140; 99283

== ENCOUNTER 2024-08-17 22:01 | Observation (INO) | payer MEDICAID, SELFPAY ==
[2024-08-17 22:11] VITALS: BP 132/96; PULSE 77; RESP 20; TEMP 36.7; O2SAT 98; BMI 43.0
[2024-08-17] MEDS: ASPIRIN 81MG CHEWABLE TABLET 324 MG PO (22:15)
--- NOTE | 2024-08-17 22:15 | ECG_ITS ---
APPROVED REPORT Exam: Resting ECG HR:72 bpm ECG Measurements Heart Rate 72 AXES ND 160 P 51 QRSd 123 QRS 59 QT 376 T 45 QTc 401 Conclusion SINUS RHYTHM POSSIBLE RIGHT VENTRICULAR CONDUCTION DELAY [RSR (QR) IN V1/V2] BORDERLINE ECG Electronically signed by : BAMBI MEHTA, 08/18/2024 00:36:56
[2024-08-17 22:23] LABS: Basophils % 0.4 % (0.1-2.0); Eosinophils # 0.1 K/mm3 (0.0-0.4); Eosinophils % 1.6 % (0.1-12.0); Hematocrit 44.2 % (42.0-52.0); Hemoglobin 15.1 g/dL (14.1-18.0); Lymphocytes # 2.1 K/mm3 (0.7-4.5); Mean Corpuscular HGB Conc 34.2 g/dL (31.8-35.4); Mean Corpuscular Hemoglobin 30.8 pg (27.0-31.2); Mean Platelet Volume 11.2 fl (7.4-10.4); Monocytes # 0.8 K/mm3 (0.1-1.0); Monocytes % 9.5 % (1.7-9.3); Neutrophils # 5.4 K/mm3 (1.8-7.8); Platelet Count 235 K/mm3 (142-424); Red Blood Count 4.91 M/mm3 (4.60-6.20); Red Cell Distribution Width 12.3 % (11.5-17.5); White Blood Count 8.5 K/mm3 (4.8-10.8)
[2024-08-17 22:29] LABS: Chloride 105 mmol/L (98-107)
[2024-08-17 22:30] VITALS: BP 146/89; PULSE 62; RESP 13; O2SAT 97
[2024-08-17 22:30] LABS: Albumin Level 4.4 g/dl (3.5-5.0); Potassium 3.8 mmoL/L (3.5-5.1); Sodium 140 mmol/L (136-145)
[2024-08-17 22:32] LABS: Alanine Aminotransferase 56 U/L (12-78); Anion Gap 11.8 mEq/L (5-15); Aspartate Amino Transferase 43 U/L (17-59); Blood Urea Nitrogen 13 mg/dl (9-20); Carbon Dioxide 27 mmol/L (22.0-30.0); Creatinine Clearance Estimated 131 mL/min (50-200); Estimated Glomerular Filt Rate 109 ml/min (>60); GFR (African American) 132 ML/MIN (>60)
[2024-08-17 22:33] LABS: Albumin/Globulin Ratio 1.7 (1.1-1.8); Alkaline Phosphatase 78 U/L (38-126); Bilirubin,Total 0.2 mg/dl (0.2-1.3); Calcium 9.2 mg/dl (8.4-10.2); Globulin 2.6 g/dL (1.3-3.2); Glucose 90 mg/dl (74-100)
[2024-08-17 22:51] LABS: Troponin I < 0.01 ng/ml (0.00-0.034)
[2024-08-17 22:54] VITALS: PULSE 77
[2024-08-17 23:00] VITALS: BP 151/99; PULSE 67; RESP 21; O2SAT 94
[2024-08-17 23:14] LABS: HIV Combo NEGATIVE (Negative)
[2024-08-17] MEDS: NITROGLYCERIN 0.4MG SL TABLET 0.4 MG SL (23:17)
--- NOTE | 2024-08-17 23:17 | [facility].EDCP ---
Discharge Plan Disposition Patient Disposition: Admitted Clinical Impressions Clinical Impression: Unstable angina Hypertension Qualifiers: Hypertension type: primary hypertension Qualified Code(s): I10 - Essential (primary) hypertension Discharge ED Provider: Lucien Barrow General Chief Complaint: Chest Pain Stated Complaint: chest pain Time Seen by Provider: 08/17/24 23:04 Mode of Arrival: Ambulatory Source of Information: Patient Limitations: No Limitations Description of Symptoms (Recalled from ER Triage Doc. by RN): pt reports he began having chest pain a couple of days ago but approximately 30 mins ago the pain became increasingly worse, EMS was called and checked him out and his brought him POV. pt denies any recent illness History of Present Illness HPI narrative: 38-year-old male presents to the ER with complaints of pressure-like chest pain. Patient reports over the last few days he has been having pressure in the left chest that feels like an elephant sitting on his chest. Patient is overweight and has a history of hypertension, BIGG. He also has a strong family history with his dad having an VA at age 32. Patient reports exertion worsens his pain and rest seems to improve it. He states his pain never seems to fully go away. Tonight after cleaning a deer he had worsening of the pain. He reports this was around 8 PM, approximately 2 hours prior to arrival. Patient reports no fevers, chills, cough, congestion, nausea, vomiting, diarrhea. He reports the pain does not radiate. He describes it as squeezing and pressure. He states he has never had pain like this in the past. He denies any swelling in the feet or legs. At the time my assessment patient is still having pain though he reports it has improved some since arrival. Related Data Home Medications ?Medication ?Instructions ?Recorded ?Confirmed lisinopril 20 1 tab PO DAILY 08/18/24 08/18/24 mg-hydrochlorothiazide 25 mg tablet meloxicam 15 mg tablet 15 mg PO DAILY 08/18/24 08/18/24 Allergies Allergy/AdvReac Type Severity Reaction Status Date / Time vancomycin Allergy Intermediate Tachycardia Verified 10/12/23 15:11 Penicillins Allergy Mild Verified 10/12/23 15:11 [facility] Disclaimer: The information contained in this section may have been updated after the patient was seen, as this information can be updated by other users. Medical History Tympanosclerosis Deviated septum Sleep apnea Obesity Dyspnea History of cardiac arrhythmia Cardiac dysrhythmia Left knee pain Hypertension Family History Other Asthma Cancer Diabetes Hypertension Stroke Social History (Updated 08/18/24 @ 01:57 by Samantha Lagunas RN) Smoking Status: Never smoker alcohol intake: never substance use type: denies use current occupational status: employed Travel in the last 8 weeks: None Have you lived/traveled outside [place] in past 30 days?: No Contact w/someone who lives/traveled outside US past 30 days?: No Exposure to someone with infectious disease in past 14 days?: No Do you have a fever (greater than 100.4 F or 38 C)?: No Have you tested positive for COVID-19: No Exposed to someone with COVID-19 in past 14 days?: No Do you have a sore throat?: No Do you have a cough?: No Do you have any weakness?: No Do you have any diarrhea?: No Are you experiencing any unusual bleeding?: No Do you have any muscle aches/pain?: No Do you have any abdominal pain?: No Are you experiencing loss of taste or smell?: No Other Medical History Have you received the Pneumonia Vaccine: No ROS Obtained: Yes Systems reviewed as appropriate & no additional complaints except as documented Per HPI Physical Exam General General appearance: alert, in no apparent distress and obese Head Head exam: atraumatic and normocephalic Eye Eye exam: Present PERRL and EOMI ENT ENT exam: Present mucous membranes moist Neck Neck exam: Present normal inspection and full ROM Chest Chest inspection: Present symmetric chest wall rise Respiratory Respiratory exam: Present normal lung sounds bilaterally; Absent respiratory distress, wheezes or stridor Cardiovascular Cardiovascular exam: Present regular rate and normal rhythm Abdominal Exam Abdominal exam: Present soft; Absent distention or tenderness Extremities Exam Extremities exam: Present full ROM; Absent edema Neurological Exam Neurological exam: Present alert and oriented X3; Absent motor sensory deficit Psychiatric Psychiatric exam: Present normal affect and normal mood Skin Skin exam: Present warm and dry HEART Score HEART Score HEART Score assessment performed?: Yes History (anamnesis): Moderately suspicious ECG: Non-specific disturbance Age: <45 years Risk factors: 3 or more risk factors Troponin: </= normal limit HEART Score: 4 Critical Care Critical Care Time Critical Care Time: No Medical Decision Making Medical Records Medical records reviewed: Yes I reviewed the patient's medical records. MR Comment: Patient was last evaluated by primary care doctor in September 2023 by Fadia Ott. Plan at that time was for outpatient labs, started on amitriptyline and refilled gabapentin for phantom pain after traumatic amputation of right thumb. Patient was evaluated by cardiology in 2020. He had had an arrhythmia identified during sleep study. He was not prescribed any medications during that visit. Marcel Inquiry Pt receiving controlled substance: No Vital Signs Vital Signs: 08/17/24 22:11 08/17/24 22:30 08/17/24 22:54 Temperature 98.1 F Temperature Source Oral Pulse Rate 62 77 Pulse Rate [Right] 77 Respiratory Rate 20 13 Blood Pressure 146/89 H Blood Pressure [Right Arm] 132/96 H Blood Pressure Mean [Right Arm] 108 Blood Pressure Source [Right Arm] 02 Sat by Pulse Oximetry 98 97 Oxygen Delivery Method Oxygen Flow Rate (LPM) 08/17/24 23:00 08/17/24 23:30 08/18/24 00:43 Temperature 97.8 F Temperature Source Pulse Rate 67 71 71 Pulse Rate [Right] Respiratory Rate 21 12 18 Blood Pressure 151/99 H 138/100 H 145/101 H Blood Pressure [Right Arm] Blood Pressure Mean [Right Arm] Blood Pressure Source [Right Arm] 02 Sat by Pulse Oximetry 94 L 95 Oxygen Delivery Method Room Air Oxygen Flow Rate (LPM) 08/18/24 01:00 08/18/24 01:00 Temperature 97.7 F Temperature Source Oral Pulse Rate Pulse Rate [Right] 71 Respiratory Rate 15 Blood Pressure Blood Pressure [Right Arm] 134/97 H Blood Pressure Mean [Right Arm] 109 Blood Pressure Source [Right Arm] Automatic Cuff 02 Sat by Pulse Oximetry 99 Oxygen Delivery Method Room Air Nasal Cannula Oxygen Flow Rate (LPM) 2 Lab Data Labs: Lab Results 08/17/24 22:07: WBC 8.5, RBC 4.91, Hgb 15.1, Hct 44.2, MCV 90.0, MCH 30.8, MCHC 34.2, RDW 12.3, Plt Count 235, MPV 11.2 H, Neut % (Auto) 63.0, Lymph % (Auto) 25.0, Starke % (Auto) 9.5 H, Eos % (Auto) 1.6, Baso % (Auto) 0.4, Neut # (Auto) 5.4, Lymph # (Auto) 2.1, Starke # (Auto) 0.8, Eos # (Auto) 0.1, Baso # (Auto) 0.0, Sodium 140, Potassium 3.8, Chloride 105, Carbon Dioxide 27, Anion Gap 11.8, BUN 13, Creatinine 0.80, Estimated Creat Clear 131, Estimated GFR 109, Est GFR ( Amer) 132, Glucose 90, Calcium 9.2, Total Bilirubin 0.2, AST 43, ALT 56, Alkaline Phosphatase 78, Troponin I < 0.01, Total Protein 7.0, Albumin 4.4, Globulin 2.6, Albumin/Globulin Ratio 1.7, HCV Ab LUIS MIGUEL w/Rflx PCR Qn Negative, HIV Ag/Ab Combo Qual Negative 08/18/24 04:20 08/18/24 04:20 Response Orders (Tests/Meds): ED MEDICATIONS Generic Name Dose Route Start Last Admin Trade Name Freq PRN Reason Stop Dose Admin Acetaminophen 650 mg 08/18/24 02:49 08/18/24 22:16 Acetaminophen 325mg Tab PO 09/17/24 02:48 650 mg Q4HP PRN Administration Fever or Mild Pain (1-3) Hydrocodone Bitart/Acetaminophen 1 tab 08/19/24 00:48 08/19/24 02:07 Hydrocodone/Apap 5/325 Mg Tablet PO 08/19/24 00:49 1 tab ONCE ONE Administration Al Hydrox/Mg Hydrox/Simethicone 30 ml 08/18/24 00:28 08/18/24 12:01 Aluminum/Magnesium/Simethicone 30ml Udc PO 09/17/24 00:27 30 ml QIDP PRN Administration Dyspepsia Calcium Carbonate 500 mg 08/18/24 11:43 08/18/24 12:03 Calcium Carbonate 500mg Chewtab PO 09/17/24 11:42 500 mg QIDP PRN Administration Heartburn Carvedilol 3.125 mg 08/18/24 09:00 08/18/24 20:12 Carvedilol 3.125mg Tablet PO 09/17/24 08:59 3.125 mg BID COLLETTE Administration Enoxaparin Sodium 40 mg 08/18/24 21:00 08/18/24 20:12 Enoxaparin 40mg/0.4ml Syringe SUBCUT 09/17/24 20:59 40 mg BID COLLETTE Administration Morphine Sulfate 2 mg 08/18/24 02:00 Morphine 2mg/Ml Syringe IV 09/17/24 01:59 Q2HP PRN Severe Pain (7-10) Nitroglycerin 0.4 mg 08/18/24 02:00 08/18/24 18:50 Nitroglycerin 0.4mg Sl Tablet SL 09/17/24 01:59 0.4 mg Q5M PRN Administration Chest Pain Nitroglycerin 1 gm 08/18/24 04:00 08/19/24 03:53 Nitroglycerin 1 Gm Ointment TD 09/17/24 03:59 1 gm Q8H COLLETTE Administration Ondansetron HCl 4 mg 08/18/24 00:28 Ondansetron 4mg/2ml Vial IV 09/17/24 00:27 Q8HP PRN Nausea Pantoprazole Sodium 40 mg 08/18/24 21:00 08/18/24 20:12 Pantoprazole 40mg Tablet PO 09/17/24 20:59 40 mg HS COLLETTE Administration Sodium Chloride 10 ml 08/18/24 02:00 Sodium Chloride 0.9% 10ml Flush Syringe IV 09/17/24 01:59 NEEDED PRN Maintain IV Site Discontinued Medications Generic Name Dose Route Start Last Admin Trade Name Freq PRN Reason Stop Dose Admin Acetaminophen 1,000 mg 08/18/24 00:12 08/18/24 00:13 Acetaminophen 500mg Tab PO 08/18/24 00:13 1,000 mg ONCE ONE Administration Aspirin 324 mg 08/17/24 22:14 08/17/24 22:15 Aspirin 81mg Chewable Tablet PO 08/17/24 22:15 324 mg ONCE ONE Administration Enoxaparin Sodium 40 mg 08/18/24 09:00 08/18/24 08:03 Enoxaparin 40mg/0.4ml Syringe SUBCUT 08/18/24 13:00 40 mg DAILY COLLETTE Administration Pantoprazole Sodium 40 mg/ 100 mls @ 100 mls/hr 08/18/24 11:44 08/18/24 12:03 Sodium Chloride IV 08/18/24 12:43 100 mls/hr ONCE ONE Administration Nitroglycerin 0.4 mg 08/17/24 23:15 08/17/24 23:17 Nitroglycerin 0.4mg Sl Tablet SL 08/17/24 23:16 0.4 mg ONCE ONE Administration ORDERS Category Date Time Status Complete Blood Count Auto Diff Stat Lab 08/17/24 22:07 Completed Comprehensive Metabolic Panel Stat Lab 08/17/24 22:07 Completed HIV Combo Stat Lab 08/17/24 22:07 Completed Hepatitis C Ab Qual. W/ RFX Stat Lab 08/17/24 22:07 Completed Troponin I Q3H Lab 08/18/24 01:30 Completed Troponin I Q3H Lab 08/18/24 04:20 Completed Troponin I Stat Lab 08/17/24 22:07 Completed MDM Narrative Medical Decision Narrative: In summary, this 38-year-old male with comorbidities described in the HPI which increases his overall morbidity presents to the emergency department today with chest pressure. On initial evaluation patient is hemodynamically stable, afebrile, patient is still having very mild chest pressure but reports it is improved since arrival. Aside from obesity his physical exam is otherwise benign. Differential diagnosis includes but is not limited to ACS, arrhythmia, electrolyte abnormality, dehydration, I considered PE however patient is PERC negative, also considered unstable angina, esophageal spasm, others. Based on these concerns, I ordered cardiac workup. ECG personally interpreted demonstrates normal sinus rhythm, rate 72, normal axis, normal IN and QTc, no STEMI. Patient received aspirin, sublingual nitro for treatment. Labs personally reviewed demonstrate nonactionable CBC and CMP, initial troponin undetectably low less than 0.01. Serial troponin pending XR personally interpreted demonstrates no acute intrathoracic abnormality, see radiology read for final interpretation. Patient placed into ED observation at 2330 for serial troponins and continued cardiac monitoring to rule out evolving VA and preclude unnecessary admission. 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 On reassessment after receiving nitro patient's chest pain is resolved. He reports he has not felt this well since his pain started 5 days ago. I am glad that patient's pain is relieved however this does increase my concern for cardiac etiology despite negative troponin initially. Patient has significant risk factors both personally and in his family history and I believe he requires admission for unstable angina. I discussed this with the hospitalist and patient was graciously excepted for admission for further cardiac monitoring and workup. He was admitted in stable condition.
[2024-08-17 23:30] VITALS: BP 138/100; PULSE 71; RESP 12; O2SAT 95
[2024-08-17 23:43] LABS: Hepatitis C Ab Qual. W/ RFX NEGATIVE (Negative)
[2024-08-18] VITALS (11 sets, daily range): BP systolic 126–149; BP diastolic 72–101; PULSE 59–88; RESP 15–18; TEMP 36.4–36.8; O2SAT 94–99; BMI 42.6
[2024-08-18] MEDS: ACETAMINOPHEN 500MG TAB 1000 MG PO (00:13)
--- NOTE | 2024-08-18 00:25 | XR_ITS ---
PROCEDURE INFORMATION: Exam: XR Chest Exam date and time: 08/18/2024 12:18 AM Age: 38 years old Clinical indication: Pain; Chest pressure; Additional info: Cp TECHNIQUE: Imaging protocol: Radiologic exam of the chest. Views: 2 views. COMPARISON: CR XR SHOULDER LT MIN 2V 03/23/2021 3:43 PM FINDINGS: Lungs: No evidence of acute pulmonary disease or infiltrates Pleural spaces: No large effusion or pneumothorax. Heart/Mediastinum: No evidence of mediastinal widening or cardiac silhouette enlargement; the mediastinum and heart appear within normal limits for contour and size. Diaphragm: There is elevation of the right hemidiaphragm. Bones/joints: No evidence of acute osseous abnormalities within the visualized portions of the thoracic spine and ribs. Osseous structures appear appropriate for patient age. IMPRESSION: No dense parenchymal consolidation, pleural effusion, or pneumothorax.
--- NOTE | 2024-08-18 00:57 | PC.NURSE ---
pt arrived to floor from ed via [facility] at 0056.
[2024-08-18] MEDS: NITROGLYCERIN 0.4MG SL TABLET 0.4 MG SL ×3 (02:00→18:50)
--- NOTE | 2024-08-18 02:04 | PC.NURSE ---
0200: Pt. c/o left upper chest pressure. Nigel Schulte APRN notified. Nitro SL given chest pressure 10/31. No SOB
[2024-08-18 02:05] LABS: Troponin I < 0.01 ng/ml (0.00-0.034)
--- NOTE | 2024-08-18 02:45 | INFXCTL.NOTE ---
0215: chest pressure relieved with Nitro SL.
--- NOTE | 2024-08-18 02:46 | PC.NURSE ---
0215: Pt's Chest pressure releived with Nitro SL. vital signs stable. Pt. placed on O2 2Lper NC .
[2024-08-18] MEDS: NITROGLYCERIN 1 GM OINTMENT TD ×3 (03:01→20:08)
--- NOTE | 2024-08-18 03:13 | P.HP_ITS ---
History of Present Illness *Admission Date: 08/18/24 *Reason for visit:: Chest pain *History of present illness: A 38-year-old male presents to the emergency department with complaints of pressure-like chest pain that began a few days ago. He describes the pain as feeling like an elephant sitting on my chest, located in the left chest area. The pain is pressure-like, squeezing in nature, and does not radiate. He notes that exertion worsens the pain, while rest improves it, although the pain never completely resolves. Earlier tonight, around 8 PM, while cleaning a deer, the chest pain worsened significantly, prompting him to seek medical attention approximately two hours later. He denies any fever, chills, cough, congestion, nausea, vomiting, diarrhea, or swelling in the feet or legs. This is the first time he has experienced this type of chest pain. His past medical history is significant for hypertension and obstructive sleep apnea. He is overweight and has a strong family history of cardiovascular disease, with his father experiencing a myocardial infarction at the age of 32. It was hypertension he did undergo a stress test in July 2021 that shows normal left ventricular systolic function at rest with increased contractility and hyperdynamic left ventricular response with exercise Upon arrival, the patient was still experiencing chest pain, though it had improved slightly. He received aspirin and sublingual nitroglycerin, which provided symptomatic relief. While under observation, his chest pain returned at a 4/10 intensity and required a second dose of nitroglycerin, which again alleviated the symptoms. Serial troponin levels were checked and remained undetectable at <0.01 on two separate draws. An electrocardiogram demonstrated normal sinus rhythm with no acute ischemic changes possible right ventricular conduction delay At the time of this assessment, the patient remains hemodynamically stable, afebrile, and reports improved, mild chest pressure. A cardiac workup is being conducted to rule out acute coronary syndrome and other potential causes of his symptoms. [facility] Disclaimer: The information contained in this section may have been updated after the patient was seen, as this information can be updated by other users. Medical History Tympanosclerosis Deviated septum Sleep apnea Obesity Dyspnea History of cardiac arrhythmia Cardiac dysrhythmia Left knee pain Hypertension Family History Other Asthma Cancer Diabetes Hypertension Stroke Social History (Updated 08/18/24 @ 01:57 by Samantha Lagunas RN) Smoking Status: Never smoker alcohol intake: never substance use type: denies use current occupational status: employed Travel in the last 8 weeks: None Have you lived/traveled outside [place] in past 30 days?: No Contact w/someone who lives/traveled outside US past 30 days?: No Exposure to someone with infectious disease in past 14 days?: No Do you have a fever (greater than 100.4 F or 38 C)?: No Have you tested positive for COVID-19: No Exposed to someone with COVID-19 in past 14 days?: No Do you have a sore throat?: No Do you have a cough?: No Do you have any weakness?: No Do you have any diarrhea?: No Are you experiencing any unusual bleeding?: No Do you have any muscle aches/pain?: No Do you have any abdominal pain?: No Are you experiencing loss of taste or smell?: No Other Medical History Have you received the Flu Vaccine for this season: No Have you received the Pneumonia Vaccine: No Review of Systems Review of Systems Review of systems (narrative): 14 point review of systems negative outside of HPI Meds Home Medications and Allergies Home Medications ?Medication ?Instructions ?Recorded ?Confirmed ?Type lisinopril 20 1 tab PO DAILY 08/18/24 08/18/24 History mg-hydrochlorothiazide 25 mg tablet meloxicam 15 mg tablet 15 mg PO DAILY 08/18/24 08/18/24 History New Prescriptions to Start Prescriptions: Allergies Allergy/AdvReac Type Severity Reaction Status Date / Time vancomycin Allergy Intermediate Tachycardia Verified 10/12/23 15:11 Penicillins Allergy Mild Verified 10/12/23 15:11 Exam Data for Last 24 hours Vital signs and Labs for Last 24 Hours: Temp Pulse Resp BP Pulse Ox O2 Del Method O2 Flow Rate 97.7 F 60 18 132/89 99 Nasal Cannula 2 08/18/24 01:00 08/18/24 02:10 08/18/24 02:10 08/18/24 02:10 08/18/24 02:10 08/18/24 02:10 08/18/24 02:10 Laboratory Results - last 24 hr 08/17/24 22:07: WBC 8.5, RBC 4.91, Hgb 15.1, Hct 44.2, MCV 90.0, MCH 30.8, MCHC 34.2, RDW 12.3, Plt Count 235, MPV 11.2 H, Neut % (Auto) 63.0, Lymph % (Auto) 25.0, Crane % (Auto) 9.5 H, Eos % (Auto) 1.6, Baso % (Auto) 0.4, Neut # (Auto) 5.4, Lymph # (Auto) 2.1, Crane # (Auto) 0.8, Eos # (Auto) 0.1, Baso # (Auto) 0.0, Sodium 140, Potassium 3.8, Chloride 105, Carbon Dioxide 27, Anion Gap 11.8, BUN 13, Creatinine 0.80, Estimated Creat Clear 131, Estimated GFR 109, Est GFR ( Amer) 132, Glucose 90, Calcium 9.2, Total Bilirubin 0.2, AST 43, ALT 56, Alkaline Phosphatase 78, Troponin I < 0.01, Total Protein 7.0, Albumin 4.4, Globulin 2.6, Albumin/Globulin Ratio 1.7, HCV Ab LUIS MIGUEL w/Rflx PCR Qn Negative, HIV Ag/Ab Combo Qual Negative 08/18/24 01:30: Troponin I < 0.01 I & O for Last 24 hours: Intake & Output 08/15/24 08/16/24 08/17/24 08/18/24 23:59 23:59 23:59 23:59 Output Total 0 / 0 Balance 0 / 0 Weight 136.078 kg 135.171 kg Constitutional Constitutional: no acute distress and obese *Routine HEENT Exam Head: Present normocephalic Eye: Present EOMI and PERRL ENT: Present mucous membranes moist *Routine Neck Exam Neck: Present supple; Absent lymphadenopathy *Routine Respiratory Exam Respiratory: Present CTA bilaterally *Routine Cardiovascular Exam Cardiovascular: Present RRR *Routine Abdominal Exam Abdominal: Present soft and normoactive bowel sounds; Absent tenderness *Routine Rectal Exam Rectal:: deferred *Routine Genitalia Exam Genitalia:: deferred *Routine Extremities Exam Extremities: Absent cyanosis, clubbing or edema *Routine Skin Exam Skin: Present warm; Absent rash *Routine Neurological Exam Neurological: Present alert and oriented X3 Assessment and Plan *Assessment and plan (1) Unstable angina: Status: Acute Category: Medical Code(s): I20.0 - Unstable angina (2) Obesity: Status: Chronic Qualifiers: Obesity classification: unspecified obesity classification Obesity type: unspecified obesity type Serious obesity comorbidity presence: unspecified whether serious comorbidity present Qualified Code(s): E66.9 - Obesity, unspecified Category: Medical Code(s): E66.9 - Obesity, unspecified (3) Hypertension: Status: Chronic Qualifiers: Hypertension type: primary hypertension Qualified Code(s): I10 - Essential (primary) hypertension Category: Medical Code(s): I10 - Essential (primary) hypertension Plan Medical Decision Making (MDM): This 38-year-old male presents with exertional chest pain that is pressure-like and partially relieved by sublingual nitroglycerin, concerning for possible acute coronary syndrome (unstable angina). He has significant risk factors, including obesity, hypertension, obstructive sleep apnea, and a strong family history of premature myocardial infarction (father at 32). His symptoms were exacerbated by physical exertion, do not radiate, and are described as squeezing or pressure-like. Despite negative initial troponin levels (<0.01 x 2), his presentation warrants careful evaluation for evolving ischemic cardiac disease. Additional considerations include poorly controlled hypertension as a contributo r to cardiac strain and his obesity as a modifiable risk factor. Other potential differentials such as esophageal spasm, musculoskeletal pain, and anxiety- related chest pain are also considered but less likely given the patient?s history and presentation. 1. Chest Pain - Suspected Unstable Angina (ICD-10: I20.0): * Admit the patient to observation with continuous cardiac telemetry to monitor for evolving ischemia or arrhythmias. * Administer aspirin 81 mg daily for antiplatelet therapy. * Sublingual nitro has been effective but required readministration we will exchange for Nitropaste * Repeat troponin levels every 3-6 hours to monitor for myocardial injury. * Request echocardiogram * Perform repeat ECG with any recurrence or worsening of symptoms. * Consult cardiology for evaluation of chest pain and input on advanced diagnostics, including the need for coronary angiography or other invasive testing if symptoms persist or diagnostic results are equivocal. * Educate the patient on recognizing and promptly reporting any new or worsening symptoms, including chest pain, shortness of breath, or dizziness. 2. Hypertension - Poorly Controlled (ICD-10: I10): * Optimize antihypertensive therapy to achieve a target blood pressure of less than 130/80 mmHg. * Continue home medication regimen * Monitor blood pressure closely during observation, with adjustments to therapy as needed. * Schedule follow-up with primary care within 1-2 weeks for reassessment and further management of hypertension. * Provide education on the importance of consistent medication adherence and lifestyle modifications, including sodium reduction and stress management. 3. Obesity - Contributing Cardiovascular Risk Factor (ICD-10: E66.9): * Discuss weight loss strategies, emphasizing a heart-healthy diet and calorie control. * Recommend a referral to a dietitian or structured weight loss program for long-term support. * Encourage light physical activity, such as walking, after clearance by cardiology, to reduce cardiovascular risk and improve overall health. * Schedule follow-up for obesity management and progress monitoring with primary care or a weight life management teacher. Follow-up: * Cardiovascular risk is heightened due to family history of premature myocardial infarction, hypertension, obesity, and obstructive sleep apnea. Consulting cardiology is warranted to evaluate the need for invasive testing or further interventions. * GI prophylaxis with Protonix * VTE prophylaxis with subcu Lovenox Rounded on patient after nurse practitioner. Personally examined and interviewed patient. Agree with exam findings and care plan as documented. Had persistent pain today. Differential includes ACS, GERD, muscle strain. Pain responds best to nitroglycerin patch. Continue pantoprazole 40 mg nightly. Cardiology to evaluate in the morning.
[2024-08-18 05:10] LABS: INR 0.88 (0.9-1.1); Prothrombin Time 9.8 seconds (9.2-12.1)
[2024-08-18 05:12] LABS: Basophils % 0.4 % (0.1-2.0); Eosinophils # 0.1 K/mm3 (0.0-0.4); Hematocrit 42.8 % (42.0-52.0); Hemoglobin 14.3 g/dL (14.1-18.0); Lymphocytes # 2.5 K/mm3 (0.7-4.5); Lymphocytes % 36.2 % (10-50); Mean Corpuscular HGB Conc 33.4 g/dL (31.8-35.4); Mean Corpuscular Hemoglobin 30.2 pg (27.0-31.2); Mean Corpuscular Volume 90.5 fl (80-94); Mean Platelet Volume 11.1 fl (7.4-10.4); Monocytes # 0.7 K/mm3 (0.1-1.0); Monocytes % 9.5 % (1.7-9.3); Neutrophils # 3.6 K/mm3 (1.8-7.8); Neutrophils % 51.6 % (37.0-80.0); Platelet Count 223 K/mm3 (142-424); Red Blood Count 4.73 M/mm3 (4.60-6.20); Red Cell Distribution Width 12.3 % (11.5-17.5)
[2024-08-18 05:27] LABS: Chloride 107 mmol/L (98-107); Sodium 140 mmol/L (136-145)
[2024-08-18 05:30] LABS: Blood Urea Nitrogen 15 mg/dl (9-20); Creatinine Clearance Estimated 131 mL/min (50-200); Estimated Glomerular Filt Rate 109 ml/min (>60); GFR (African American) 132 ML/MIN (>60)
[2024-08-18 05:31] LABS: Calcium 9.1 mg/dl (8.4-10.2); Carbon Dioxide 24 mmol/L (22.0-30.0); Chol/HDL Ratio 3.8 (1-3.5); Cholesterol 129 mg/dl (140-200); Glucose 89 mg/dl (74-100); HDL Cholesterol 34 mg/dl (40-60); Phosphorous 4.6 mg/dl (2.5-4.5); Triglycerides 74 mg/dl (30-150); VLDL Cholesterol 15 mg/dL (0-40)
[2024-08-18 05:42] LABS: Direct LDL Cholesterol 71.66 mg/dL (100-129)
[2024-08-18 05:46] LABS: Troponin I < 0.01 ng/ml (0.00-0.034)
[2024-08-18 05:50] LABS: Free T4 (Free Thyroxine) 1.04 ng/dl (0.78-2.19)
--- NOTE | 2024-08-18 06:00 | ECG_ITS ---
APPROVED REPORT Exam: Resting ECG HR:70 bpm ECG Measurements Heart Rate 70 AXES WY 162 P 48 QRSd 113 QRS 45 QT 385 T 44 QTc 406 Conclusion SINUS RHYTHM MODERATE INTRAVENTRICULAR CONDUCTION DELAY [110+ ms QRS DURATION] BORDERLINE ECG UNCONFIRMED REPORT Electronically signed by : Oracio Diaz MD 08/19/2024 08:58:52
[2024-08-18 06:01] LABS: Thyroid Stimulating Hormone 1.91 uIU/mL (0.465-4.68)
--- NOTE | 2024-08-18 06:02 | PC.NURSE ---
Pt. was admitted overnight from the ED. Pt. is alert and orientated x 4. Pt. was seen in the ED for chest pressure and admitted with Unstable Angina. in the ED pt. got one nitro SL with relief of chest pressure. upon admission to the floor. pt. developed left upper chest pressure. Nitro SL given . pressure was 4/10. the chest pressure resolved. Nitro paste was applied to chest. Pt. with orders for cardiology consult. VSS, personal items and call sol in reach.
[2024-08-18] MEDS: ENOXAPARIN 40MG/0.4ML SYRINGE 40 MG SUBCUT ×2 (08:03→20:12)
[2024-08-18] MEDS: CARVEDILOL 3.125MG TABLET 3.125 MG PO ×2 (08:03→20:12)
[2024-08-18] MEDS: ACETAMINOPHEN 325MG TAB 650 MG PO ×3 (08:03→22:16)
[2024-08-18 11:00] LABS: Lipase 68 U/L (23-300)
[2024-08-18] MEDS: ALUMINUM/MAGNESIUM/SIMETHICONE 30ML UDC 30 ML PO (12:01)
[2024-08-18] MEDS: PANTOPRAZOLE SODIUM 40 MG in 0.9 % SODIUM CHLORIDE 100 ML 100 MG IV (12:03)
[2024-08-18] MEDS: CALCIUM CARBONATE 500MG CHEWTAB 500 MG PO (12:03)
--- NOTE | 2024-08-18 15:21 | PC.NURSE ---
AOX4, TOLERATING ROOM AIR FOR DURATION OF THE SHIFT TODAY. AMBULATING IN ROOM INDEPENDENTLY. DID C/O CHEST PAIN ONCE TODAY AND RECEIVED PRN DOSE OF SL NITRO WITH GOOD EFFECTIVENESS. EKG OBTAINED AND RELAYED TO MD. PT ALSO STATED THAT HE HAS BEEN EXPERIENCING HEARTBURN FOR MULTIPLE DAYS PRIOR TO ADMISSION. DR JEREZ WAS MADE AWARE.
[2024-08-18] MEDS: PANTOPRAZOLE 40MG TABLET 40 MG PO (20:12)
[2024-08-19] VITALS (15 sets, daily range): BP systolic 122–154; BP diastolic 72–96; PULSE 61–76; RESP 16–20; TEMP 36.6–36.9; O2SAT 93–100; BMI 42.6
--- NOTE | 2024-08-19 | IR_ITS ---
APPROVED REPORT Patient Location: Inpatient Hall Monitor: SHERYL Beard RT (R) PROCEDURES Left heart catheterization Left ventriculogram Selective coronary angiogram INDICATION Abnormal stress test, Unstable angina, Informed consent was obtained prior to the procedure. COMPLICATIONS none Estimated Blood Loss: less than 10ml TECHNIQUE One percent lidocaine used to anesthetize the right anterior aspect of the wrist. The right radial artery was accessed via the Seldinger technique. A 6 Solomon Islander sheath was placed in the right radial artery. 2.5 mg of Verapamil, 800 mcg of nitroglycerin, 1mg Lidocaine and 5000 U Heparin were given through the arterial sheath. The 6 Solomon Islander JL 3 guide catheter was also used to perform left heart catheterization, left ventriculogram and selective coronary angiogram. At the end of the procedure the sheath was removed good hemostasis was achieved using Traclet band, patient was transferred to the postop holding area in stable condition. ANGIOGRAPHIC RESULTS The left main artery Normal The left anterior descending artery Normal The circumflex artery Dominant normal The right coronary artery Nondominant normal The VOGT ventriculogram reveals Slight left ventricular dilatation with slightly reduced ejection fraction estimated 45% The left ventricular end-diastolic pressure Elevated at 25 mmHg IMPRESSION Normal coronary arteries Dilated ventricle with reduced ejection fraction estimated at 45% Elevated LVEDP PLAN 1. Medical management 2. Consider cardiac MRI 3. Recommend sleep study 4. Additional workup for cardiomyopathy Electronically signed by : Blair Rivera MD 08/19/2024 12:48:41
[2024-08-19] MEDS: HYDROCODONE/APAP 5/325 MG TABLET 1 TAB PO (02:07)
[2024-08-19] MEDS: NITROGLYCERIN 1 GM OINTMENT TD ×2 (03:53→12:33)
--- NOTE | 2024-08-19 04:47 | PC.NURSE ---
Pt. is alert and orientated x 4. Pt. on room air. No c/o chest pain or pressure this shift. Pt. had one Nitro SL just before change of shift. Nitro paste is on the chest. Pt. c/o nitro headache. Tylenol was minimal effective on the headache. Pt, medicated with one Model for headache and felt much better. Pt. NPO after midnight for procedures today. Pt. sleeping well. No SOB. VSS. Personal items and call sol in reach.
--- NOTE | 2024-08-19 07:31 | P.DS_ITS ---
General Admission date:: 08/18/24 Discharge date: 08/19/24 HPI HPI HPI: A 38-year-old male presents to the emergency department with complaints of pressure-like chest pain that began a few days ago. He describes the pain as feeling like an elephant sitting on my chest, located in the left chest area. The pain is pressure-like, squeezing in nature, and does not radiate. He notes that exertion worsens the pain, while rest improves it, although the pain never completely resolves. Earlier tonight, around 8 PM, while cleaning a deer, the chest pain worsened significantly, prompting him to seek medical attention approximately two hours later. He denies any fever, chills, cough, congestion, nausea, vomiting, diarrhea, or swelling in the feet or legs. This is the first time he has experienced this type of chest pain. His past medical history is significant for hypertension and obstructive sleep apnea. He is overweight and has a strong family history of cardiovascular disease, with his father experiencing a myocardial infarction at the age of 32. It was hypertension he did undergo a stress test in July 2021 that shows normal left ventricular systolic function at rest with increased con tractility and hyperdynamic left ventricular response with exercise Upon arrival, the patient was still experiencing chest pain, though it had improved slightly. He received aspirin and sublingual nitroglycerin, which provided symptomatic relief. While under observation, his chest pain returned at a 4/10 intensity and required a second dose of nitroglycerin, which again alleviated the symptoms. Serial troponin levels were checked and remained undetectable at <0.01 on two separate draws. An electrocardiogram demonstrated normal sinus rhythm with no acute ischemic changes possible right ventricular conduction delay At the time of this assessment, the patient remains hemodynamically stable, afebrile, and reports improved, mild chest pressure. A cardiac workup is being conducted to rule out acute coronary syndrome and other potential causes of his symptoms. Hospital Course Hospital Course Hospital Course: This 38-year-old male presents with exertional chest pain that is pressure-like and partially relieved by sublingual nitroglycerin, concerning for possible acute coronary syndrome (unstable angina). He has significant risk factors, including obesity, hypertension, obstructive sleep apnea, and a strong family history of premature myocardial infarction (father at 32). His symptoms were exacerbated by physical exertion, do not radiate, and are described as squeezing or pressure-like. Despite negative initial troponin levels (<0.01 x 2), his presentation warrants careful evaluation for evolving ischemic cardiac disease. Patient had a heart score of 4. Decision made in the morning as he had persistent pain that only responded to nitro to take him to the [facility] for evaluation. Left heart cath showed normal cors with elevated end-diastolic pressure. Adjustments made to medication regimen. Needs follow-up with cardiology as an outpatient. Recommended weight loss. Stable discharge home. Problems addressed as follows: Unstable angina Hypertension -Serial troponins obtained. Remained negative. EKG did not show ischemic changes. Patient has a heart score of 4 due to risk factors and family history. Echo was obtained that had normal EF on preliminary findings. Formal read still pending. Taken for left heart cath that showed normal coronaries with elevated left end-diastolic pressure. Recommend medication adjustments and lifestyle management. Cardiology assisted with care. Will continue patient's lisinopril/HCTZ 20/25 mg daily. Add carvedilol 3.125 mg twice daily. Initiate Lasix 40 mg as needed for edema. Follow-up with cardiology in 1 to 2 weeks. Blood pressure improved with addition of carvedilol. 122/75 at time of discharge. -Continue CPAP for sleep apnea. Weight loss strongly encouraged. Total time spent on discharge 32 minutes in counseling, documentation, discussion with subspecialist, review of testing results, chart review, and direct care with patient. Exam Data for Last 24 hours Vital signs and Labs for Last 24 Hours: Temp Pulse Resp BP Pulse Ox O2 Del Method O2 Flow Rate 97.9 F 68 18 128/83 100 Room Air 2 08/19/24 04:00 08/19/24 04:00 08/19/24 04:00 08/19/24 04:00 08/19/24 04:00 08/19/24 06:39 08/18/24 19:22 Laboratory Results - last 24 hr 08/18/24 04:20: Lipase 68 I & O for Last 24 hours: Intake & Output 08/16/24 08/17/24 08/18/24 08/19/24 23:59 23:59 23:59 23:59 Intake Total 1710 / 2310 600 / 600 Output Total 0 / 0 0 / 0 Balance 1710 / 2310 600 / 600 Weight 136.078 kg 135.171 kg 135.175 kg Constitutional Constitutional: no acute distress, morbidly obese and cooperative *Routine HEENT Exam Head: Present normocephalic and atraumatic Eye: Present EOMI and PERRL ENT: Present mucous membranes moist *Routine Neck Exam Neck: Present supple Routine Chest/Breast/Axilla Exam Chest wall: Absent tenderness *Routine Respiratory Exam Respiratory: Present CTA bilaterally; Absent rhonchi, wheezes or crackles *Routine Cardiovascular Exam Cardiovascular: Present RRR; Absent murmur, gallop or rubs *Routine Abdominal Exam Abdominal: Present soft and normoactive bowel sounds; Absent tenderness *Routine Rectal Exam Patient deferred: visual exam *Routine Exam Patient deferred: penile exam *Routine Extremities Exam Extremities: Absent edema *Routine Skin Exam Skin: Present intact; Absent cyanosis or erythema *Routine Neurological Exam Neurological: Present alert, oriented X3, CN II-XII intact and moving all extremities; Absent altered mental status Results Data Completed and Pending Labs on day of discharge: Labs from last 24 hours 08/18/24 04:20 Lipase 68 DS: Diagnosis Discharge Diagnosis (1) Unstable angina: Status: Acute Code(s): I20.0 - Unstable angina (2) Obesity: Status: Chronic Code(s): E66.9 - Obesity, unspecified Qualifiers: Obesity classification: unspecified obesity classification Obesity type: unspecified obesity type Serious obesity comorbidity presence: unspecified whether serious comorbidity present Qualified Code(s): E66.9 - Obesity, unspecified (3) Hypertension: Status: Chronic Code(s): I10 - Essential (primary) hypertension Qualifiers: Hypertension type: primary hypertension Qualified Code(s): I10 - Essential (primary) hypertension Meds Home Medications and Allergies Home Medications ?Medication ?Instructions ?Recorded ?Confirmed ?Type lisinopril 20 1 tab PO DAILY 08/18/24 08/18/24 History mg-hydrochlorothiazide 25 mg tablet meloxicam 15 mg tablet 15 mg PO DAILY 08/18/24 08/18/24 History carvedilol 3.125 mg tablet 3.125 mg PO BID 30 days #60 tabs 08/19/24 Rx furosemide 40 mg tablet (Lasix) 40 mg PO DAILY PRN edema #30 tabs 08/19/24 Rx pantoprazole 40 mg tablet,delayed 40 mg PO HS 30 days #30 tabs 08/19/24 Rx release New Prescriptions to Start Prescriptions: carvedilol Barry Phan furosemide [Lasix] Barry Phan pantoprazole Barry hPan Allergies Allergy/AdvReac Type Severity Reaction Status Date / Time vancomycin Allergy Intermediate Tachycardia Verified 10/12/23 15:11 Penicillins Allergy Mild Verified 10/12/23 15:11 Discharge Plan Disposition Patient Disposition: Home, Self-Care Condition: Fair Follow up Plan Follow up with: Stacey Mishra APRN [Primary Care Provider] - 08/26/24 3:30 pm Zbigniew Swann PA [Physician Rehab Technician] - 08/28/24 2:00 pm Prescriptions/Medication Reconciliation: New carvedilol 3.125 mg Tablet 3.125 mg PO BID 30 Days Qty: 60 0RF pantoprazole 40 mg Tablet,Delayed Release (Dr/Ec) 40 mg PO HS 30 Days Qty: 30 0RF furosemide [Lasix] 40 mg tablet 40 mg PO DAILY PRN (Reason: edema) Qty: 30 0RF Continued meloxicam 15 mg tablet 15 mg PO DAILY Rx Instructions: TAKE ONE TABLET BY MOUTH EVERY DAY lisinopril-hydrochlorothiazide 20-25 mg tablet 1 tab PO DAILY Rx Instructions: TAKE ONE TABLET BY MOUTH EVERY DAY Problem Reconciliation Problems Reviewed?: Yes Patient Discharge Instructions ACTIVITY: Continue current activity DIET: continue same diet Patient Instructions: DI for Angina, DI for Cardiac Catheterization, DI for Surgical Site Infection Print Language: Cymraes Providers Primary Care Provider: Stacey Mishra Admit Provider: Barry Phan Attending Provider: Barry Phan
[2024-08-19 08:05] LABS: Basophils % 0.4 % (0.1-2.0); Eosinophils # 0.2 K/mm3 (0.0-0.4); Eosinophils % 1.8 % (0.1-12.0); Hematocrit 41.8 % (42.0-52.0); Lymphocytes # 1.4 K/mm3 (0.7-4.5); Mean Corpuscular HGB Conc 33.5 g/dL (31.8-35.4); Mean Corpuscular Hemoglobin 30.3 pg (27.0-31.2); Mean Corpuscular Volume 90.5 fl (80-94); Mean Platelet Volume 10.4 fl (7.4-10.4); Monocytes # 0.9 K/mm3 (0.1-1.0); Monocytes % 10.4 % (1.7-9.3); Neutrophils # 5.7 K/mm3 (1.8-7.8); Platelet Count 207 K/mm3 (142-424); Red Blood Count 4.62 M/mm3 (4.60-6.20); Red Cell Distribution Width 12.3 % (11.5-17.5); White Blood Count 8.2 K/mm3 (4.8-10.8)
--- NOTE | 2024-08-19 08:06 | EXP.CARD.CON ---
History of Present Illness History of Present Illness Consult date: 08/19/24 Requesting physician: Barry Phan Consult reason: chest pain Chief complaint: Angina, Hypertension Additional Medical History:: 1. Obesity 2. Hypertension 3. FH of CAD, father with CA at age 32 History of present illness: 38-year-old white male admitted for recurrent chest pain over the last few days described as an elephant sitting on my chest . Pain is squeezing in nature and pressure-like but not radiating. Pain is worse with exertion and improves with rest. Seen in the ER with notation of elevated blood pressure noted. He was given nitroglycerin with improvement in symptoms and then a repeat dose of nitroglycerin when his pain recurred. He has subsequently been on Nitropaste since admission and notes that when the Nitropaste is due for placement he has chest pain again. Blood pressure has improved with switching from lisinopril to carvedilol. Troponins have been normal this admission. Hypertension treated for many years Obesity with 50 pound weight gain in the last year Strong family history of coronary artery disease in his father with an CA at age 32 Non-smoker and nondrinker with no history of diabetes. Preliminary echocardiogram shows preserved ejection fraction. Discussed recommendation for coronary evaluation with either CCTA or left heart catheterization. Patient has decided to proceed with left heart catheterization today. Risk, benefits and procedure explained to the patient he agrees to proceed. [facility] Disclaimer: The information contained in this section may have been updated after the patient was seen, as this information can be updated by other users. Medical History Tympanosclerosis Deviated septum Sleep apnea Obesity Dyspnea History of cardiac arrhythmia Cardiac dysrhythmia Left knee pain Hypertension Family History Other Asthma Cancer Diabetes Hypertension Stroke Social History (Updated 08/18/24 @ 01:57 by Samantha Lagunas RN) Smoking Status: Never smoker alcohol intake: never substance use type: denies use current occupational status: employed Travel in the last 8 weeks: None Review of Systems Review of Systems Review of systems:: pertinent systems reviewed and negative unless documented below Exam Data for Last 24 hours Vital signs and Labs for Last 24 Hours: Temp Pulse Resp BP Pulse Ox O2 Del Method O2 Flow Rate 97.9 F 68 18 128/83 100 Room Air 2 08/19/24 04:00 08/19/24 04:00 08/19/24 04:00 08/19/24 04:00 08/19/24 04:00 08/19/24 06:39 08/18/24 19:22 Laboratory Results - last 24 hr 08/18/24 04:20: Lipase 68 I & O for Last 24 hours: Intake & Output 08/16/24 08/17/24 08/18/24 08/19/24 11:59 11:59 11:59 11:59 Intake Total 480 / 480 1830 / 1830 Output Total 0 / 0 0 / 0 Balance 480 / 480 1830 / 1830 Weight 298 lb 0.016 oz 298 lb 0.158 oz Constitutional Constitutional: no acute distress *Routine Respiratory Exam Respiratory: Present CTA bilaterally; Absent rhonchi, wheezes or crackles *Routine Cardiovascular Exam Cardiovascular: Present RRR; Absent murmur, gallop or rubs *Routine Extremities Exam Extremities: Absent edema *Routine Neurological Exam Neurological: Present alert, oriented X3 and CN II-XII intact Meds Home Medications and Allergies Home Medications ?Medication ?Instructions ?Recorded ?Confirmed ?Type lisinopril 20 1 tab PO DAILY 08/18/24 08/18/24 History mg-hydrochlorothiazide 25 mg tablet meloxicam 15 mg tablet 15 mg PO DAILY 08/18/24 08/18/24 History New Prescriptions to Start Prescriptions: Allergies Allergy/AdvReac Type Severity Reaction Status Date / Time vancomycin Allergy Intermediate Tachycardia Verified 10/12/23 15:11 Penicillins Allergy Mild Verified 10/12/23 15:11 Assessment and Plan *Assessment and plan (1) Unstable angina: Status: Acute Category: Medical Code(s): I20.0 - Unstable angina (2) Hypertension: Status: Chronic Qualifiers: Hypertension type: primary hypertension Qualified Code(s): I10 - Essential (primary) hypertension Category: Medical Code(s): I10 - Essential (primary) hypertension (3) BMI greater than 40: Status: Acute Category: Medical Plan 1. Unstable angina -Troponins normal -Chest pain response to combination of of sublingual and transdermal nitroglycerin -Echocardiogram preliminary shows preserved ejection -Left heart catheterization today 2. Hypertension -Improved with switching from lisinopril to carvedilol 3. Obesity 4. Family history of CA in his father at age 32 5. LDL 71 with HDL 34 Continue carvedilol Continue NTG paste until cardiac cath Left heart catheterization today Further recommendations to follow [facility] showed normal coronaries with elevated LVEDP. Clinically stable for discharge home from cardiology standpoint. Home meds: Carvedilol 3.125 mg twice daily Lisinopril/HCTZ 20-25 mg daily Lasix 40 mg as needed lower extremity edema Follow-up in our office in 1 week. Recommend low-sodium diet and weight loss
[2024-08-19] MEDS: CARVEDILOL 3.125MG TABLET 3.125 MG PO (08:32)
[2024-08-19 08:54] LABS: Anion Gap 10.3 mEq/L (5-15); Blood Urea Nitrogen 13 mg/dl (9-20); Calcium 8.9 mg/dl (8.4-10.2); Carbon Dioxide 28 mmol/L (22.0-30.0); Chloride 103 mmol/L (98-107); Creatinine Clearance Estimated 131 mL/min (50-200); Estimated Glomerular Filt Rate 109 ml/min (>60); GFR (African American) 132 ML/MIN (>60); Glucose 91 mg/dl (74-100); Potassium 4.3 mmoL/L (3.5-5.1); Sodium 137 mmol/L (136-145)
[2024-08-19] MEDS: HEPARIN 1,000 UNITS/500ML NS (CATH LAB) 3000 UNIT IV (10:51)
[2024-08-19] MEDS: 0.9 % SODIUM CHLORIDE 500 ML 25 ML IV (10:51)
[2024-08-19] MEDS: VERAPAMIL 2.5MG/ML 2ML VIAL 2.5 MG IV (10:52)
[2024-08-19] MEDS: diphenhydrAMINE 50MG/ML VIAL 50 MG IV (10:52)
[2024-08-19] MEDS: LIDOCAINE 1% 10ML MDV 20 ML IJ (10:52)
[2024-08-19] MEDS: HEPARIN 1,000 UNITS/ML 10ML VIAL (CATH LAB) 10000 UNIT IV (10:52)
[2024-08-19] MEDS: MIDAZOLAM HCL 1MG/ML 5ML VIAL 1 MG IV (10:53)
[2024-08-19] MEDS: NITROGLYCERIN 800MCG/8ML SYR (CATH LAB) 800 MCG IA (10:53)
[2024-08-19] MEDS: FENTANYL 100MCG/2ML VIAL 50 MCG IV (10:53)
[2024-08-19] MEDS: IOPAMIDOL-370 (76%);100ML BOTTLE 40 ML IV (11:48)
--- NOTE | 2024-08-19 15:15 | CA_ITS ---
APPROVED REPORT EXAM: Comprehensive 2D, Doppler, and color-flow Echocardiogram Software Release Manager: Concepcion Phan CRT Ht: 5 ft 10 in Wt: 298lbs BSA: 2.47 BP: 132/89 mmHg Indications: Chest Pain, Shortness of Breath, Hyperlipidemia, BIGG 2D Dimensions LA Volume 34.70 mL LA Volume Index 13.70 mL/m2 (M/F) 16-34 M-Mode Dimensions RVDd 2.93 cm (0.9-2.6) LA Diam 3.81 cm (1.9-4.0) LVDd 5.29 cm (3.5-5.7) LVDs 3.49 cm (3.5-5.7) IVSd 1.06 cm (0.6-1.1) PWd 1.10 cm (0.6-1.1) EF (Teich) 62.50% FS 34.00% EDV (Teich) 134.80 mL TAPSE 2.29 (<1.7) ESV (Teich) 50.50 mL LV Diastology E Decel Time 200 (160-240 msec) E/A Ratio 1.55 MED A' 9.60 cm/s LAT A' 4.60 cm/s Aortic Valve AO Peak GR. 5.10 mmHg Mitral Valve MV A Velocity 58.0 (40-130 cm/s) E/A Ratio 1.55 Pulmonary Valve PV Peak Velocity 80.0 (50-150 cm/s) Tricuspid Valve TR P. Velocity 145.00 cm/s RAP Estimate 10.00 mmHg RVSP 18.40 mmHg Left Ventricle The left ventricle is normal size. The left ventricular systolic function is normal. The left ventricular ejection fraction is within the normal range. There is increased LV wall thickness. There is normal LV segmental wall motion. The left ventricular diastolic function is normal. LVEF is 55%. Right Ventricle Right ventricle is mildly dilated. The right ventricular systolic function is normal. Atria The left atrium size is normal. The right atrium size is normal. There is no Doppler evidence of interatrial shunt. Aortic Valve The aortic valve opens well. There is no aortic valvular stenosis. No aortic regurgitation is present. Mitral Valve The mitral valve is normal in structure. No evidence of mitral valve stenosis. Trace mitral regurgitation. Tricuspid Valve Tricuspid valve is grossly normal in structure and function. Trace tricuspid regurgitation. There is insufficient TR jet to estimate RVSP. Pulmonic Valve The pulmonary valve is normal in structure. Trace pulmonic regurgitation Great Vessels The aortic root is normal in size. IVC is normal in size and collapses >50% with inspiration. Pericardium There is no pericardial effusion. Other Information Study Quality: Fair Conclusion Normal biventricular systolic function. Mild RV dilation. No significant valvular stenosis or regurgitation. Electronically signed by : Maria E Allred MD 08/19/2024 11:53:41
--- NOTE | 2024-08-20 10:02 | SW/DCPLANNER ---
Spoke with patient on the phone. Patient stated that he is doinbg great. Patient stated that he is aware of his upcoming appointments. Patient stated that clinic pharmacy was able to bring his medicine to his bedside before he was discharged. Patient stated that he has no questions or concerns at this time. Carmela Herrera
== END 2024-08-19 15:07 | disposition home or self-care (01) ==
LOC: ER 08-18 00:17 → 2ND 08-18 00:20
PROVIDERS: Internal Medicine; Nurse Practitioner Family; Admitting Provider Internal Medicine Adolescent Medicine; Emergency Provider Emergency Medicine; PCP Nurse Practitioner Family; Visit Provider Internal Medicine Adolescent Medicine
DX: I20.0 Unstable angina (principal); I10 Essential (primary) hypertension; E66.9 Obesity, unspecified; Z68.41 Body mass index [BMI] 40.0-44.9, adult; Z82.49 Family history of ischemic heart disease and other diseases of the circulatory system; Z79.899 Other long term (current) drug therapy
CPT/HCPCS: 36415; 71046; 80048; 80053; 80061; 83690; 83735; 84100; 84439; 84443; 84484; 85025; 85610; 86803; 87389; 93005; 93306; 93458; 99152; 99285; C1725; C1769; G0378; J1200; J1644; J1650; J2250; J3010; Q9967